=== PATIENT | female | born 1935 | race Caucasian/White ===

== ENCOUNTER 2019-04-02 07:45 | Inpatient (IN) | payer MEDICARE, OTHER ==
--- NOTE | 2019-04-02 08:18 | EDM.PDOC ---
ED HPI GENERAL MEDICAL PROBLEM - General Chief Complaint: Respiratory Problem Stated Complaint: BODY PAIN, PNEUMONIA Time Seen by Provider: 04/02/19 08:18 - History of Present Illness INITIAL COMMENTS - FREE TEXT/NARRATIVE: 84-year-old female presents emergency room with pneumonia and polymyalgia rheumatica. Patient was restarted on prednisone 20 mg a day for her PMR. She completed a course of Zithromax and near complete course of Omnicef for her pneumonia. She states every time she thinks her cough is actually getting a little bit better no longer productive and it is less frequent. She is achy all over especially in her shoulders and hips and just doesn't feel well. The patient had a bout of pneumonia this last spring was treated in July and seemed to do pretty well after this until this last bout. It is sometimes difficult to get a precise history from this patient. Lower Back Pain Score (Numeric/FACES): 10 - Related Data Allergies Allergy/AdvReac Type Severity Reaction Status Date / Time No Known Allergies Allergy Verified 04/02/19 07:53 Home Meds: Home Meds Calcium Carbonate [Calcium] 500 mg PO DAILY 05/18/16 [History] Multivit-Min/Iron/Folic/Lutein [Centrum Silver Women Tablet] 1 tab PO DAILY [History] Simvastatin [Zocor] 40 mg PO BEDTIME 05/18/16 [History] Triamterene/Hydrochlorothiazid [Triamterene-HCTZ 37.5-25 MG] 1 each PO DAILY [History] Losartan [Cozaar] 25 mg PO DAILY 04/02/19 [History] predniSONE [Prednisone] 20 mg PO DAILY 04/02/19 [History] Past Medical History HEENT History: Reports: Cataract, Hard of Hearing, Impaired Vision Cardiovascular History: Reports: High Cholesterol, Hypertension Gastrointestinal History: Reports: Chronic Constipation, Hemorrhoids Musculoskeletal History: Reports: Arthritis, Back Pain, Chronic Oncologic (Cancer) History: Reports: Colon - Infectious Disease History Other Infectious Disease History: Got Flu shot in January. - Past Surgical History HEENT Surgical History: Reports: Cataract Surgery Female Surgical History: Reports: Hysterectomy Social & Family History - Family History Cardiac: Reports: [place] Other Cardiac Family History: mother, father - Tobacco Use Smoking Status *Q: Never Smoker - Caffeine Use Caffeine Use: Reports: Coffee - Recreational Drug Use Recreational Drug Use: No ED ROS GENERAL - Review of Systems Review Of Systems: See Below Constitutional: Reports: Chills. Denies: Fever HEENT: Reports: No Symptoms Respiratory: Reports: Cough (This apparently is improving no longer productive) . Denies: Shortness of Breath, Sputum Cardiovascular: Denies: Chest Pain GI/Abdominal: Reports: Anorexia, Other (She felt like she was to have diarrhea but never really did). Denies: Nausea, Vomiting : Reports: No Symptoms Musculoskeletal: Reports: No Symptoms Skin: Reports: No Symptoms Neurological: Reports: No Symptoms Psychiatric: Reports: Anxiety ED EXAM, GENERAL - Physical Exam Exam: See Below Exam Limited By: Other (It is difficult to get a concise history from her) General Appearance: Alert, No Apparent Distress Head: Atraumatic, Normocephalic Neck: Normal Inspection, Supple, Non-Tender, Full Range of Motion Respiratory/Chest: No Respiratory Distress, Lungs Clear, Normal Breath Sounds Cardiovascular: Regular Rate, Rhythm, No Edema, No Murmur GI/Abdominal: Normal Bowel Sounds, Soft, Tender (Only with palpation and believed to palpation), Other (Have some mild distention her). No: No Distention, Guarding, Rigid, Rebound Back Exam: Normal Inspection. No: CVA Tenderness (L), CVA Tenderness (R) Extremities: Normal Inspection, No Pedal Edema Neurological: Alert, Oriented Psychiatric: Anxious Skin Exam: Warm, Dry, Intact Course - Vital Signs Last Recorded V/S: Last Vital Signs Temp 36.8 C 04/02/19 07:55 Pulse 83 04/02/19 07:55 Resp 20 04/02/19 07:55 BP 131/67 04/02/19 07:55 Pulse Ox 95 04/02/19 07:55 - Orders/Labs/Meds Orders: Active Orders 24 hr Category Date Time Status Abdomen 2V AP Flat Upright [CR] Stat Exams 04/02/19 13:19 Taken Chest 2V [CR] Stat Exams 04/02/19 08:53 Taken Lactated Ringers [Ringers, Lactated] 1,000 ml Med 04/02/19 13:15 Active IV ASDIRECTED Isolation [COMM] Routine Oth 04/02/19 15:28 Ordered Medication Orders Acetaminophen (Tylenol) 650 mg PO Q4H PRN PRN Reason: Pain (Mild 1-3)/fever Lactated Ringer's (Ringers, Lactated) 1,000 mls @ 125 mls/hr IV ASDIRECTED RENATO Last Admin: 04/02/19 14:00 Dose: 125 mls/hr Ondansetron HCl (Zofran Odt) 4 mg PO Q6H PRN PRN Reason: nausea, able to take PO Ondansetron HCl (Zofran) 4 mg IVPUSH Q8H RENATO Simethicone (Simethicone) 80 mg PO Q4H [facility] Labs: Laboratory Tests 04/02/19 04/02/19 04/02/19 Range/Units 09:15 09:15 09:15 WBC 22.01 H (3.98-10.04) K/mm3 RBC 4.63 (3.98-5.22) M/mm3 Hgb 12.8 D (11.2-15.7) gm/dl Hct 38.2 (34.1-44.9) % MCV 82.5 (79.4-94.8) fl MCH 27.6 (25.6-32.2) pg MCHC 33.5 (32.2-35.5) g/dl RDW Std Deviation 42.9 (36.4-46.3) fL Plt Count 506 H D (182-369) K/mm3 MPV 8.3 L (9.4-12.3) fl Neutrophils % (Manual) 86 H (40-60) % Band Neutrophils % 0 (0-10) % Lymphocytes % (Manual) 10 L (20-40) % Atypical Lymphs % 0 % Monocytes % (Manual) 4 (2-10) % Eosinophils % (Manual) 0 L (0.7-5.8) % Basophils % (Manual) 0 L (0.1-1.2) Platelet Estimate Adequate RBC Morph Comment Normal ESR 60 H (0-20) mm/hr Sodium 132 L (136-145) mEq/L Potassium 3.5 (3.5-5.1) mEq/L Chloride 95 L (98-107) mEq/L Carbon Dioxide 25 (21-32) mEq/L Anion Gap 15.5 H (5-15) BUN 34 H (7-18) mg/dL Creatinine 2.3 H D (0.55-1.02) mg/dL Est Cr Clr Drug Dosing 15.33 mL/min Estimated GFR (MDRD) 20 (>60) mL/min BUN/Creatinine Ratio 14.8 (14-18) Glucose 157 H (83-115) mg/dL Calcium 10.1 (8.5-10.1) mg/dL Total Bilirubin 0.5 (0.2-1.0) mg/dL AST 22 (15-37) U/L ALT 34 (14-59) U/L Alkaline Phosphatase 46 (46-116) U/L Total Protein 6.6 (6.4-8.2) g/dl Albumin 2.5 L (3.4-5.0) g/dl Globulin 4.1 gm/dL Albumin/Globulin Ratio 0.6 L (1-2) Urine Color (Yellow) Urine Appearance (Clear) Urine pH (5.0-8.0) Ur Specific [place] (1.005-1.030) Urine Protein (Negative) Urine Glucose (UA) (Negative) Urine Ketones (Negative) Urine Occult Blood (Negative) Urine Nitrite (Negative) Urine Bilirubin (Negative) Urine Urobilinogen (0.2-1.0) Ur Leukocyte Esterase (Negative) Urine RBC (0-5) /hpf Urine WBC (0-5) /hpf Ur Squamous Epith Cells (0-5) /hpf Amorphous Sediment (NOT SEEN) /hpf Urine Bacteria (FEW) /hpf Urine Mucus (FEW) /hpf Ur Random Creatinine (30.0-125.0) mg/dL Ur Random Sodium (40-220) mEq/L 04/02/19 04/02/19 Range/Units 11:34 11:34 WBC (3.98-10.04) K/mm3 RBC (3.98-5.22) M/mm3 Hgb (11.2-15.7) gm/dl Hct (34.1-44.9) % MCV (79.4-94.8) fl MCH (25.6-32.2) pg MCHC (32.2-35.5) g/dl RDW Std Deviation (36.4-46.3) fL Plt Count (182-369) K/mm3 MPV (9.4-12.3) fl Neutrophils % (Manual) (40-60) % Band Neutrophils % (0-10) % Lymphocytes % (Manual) (20-40) % Atypical Lymphs % % Monocytes % (Manual) (2-10) % Eosinophils % (Manual) (0.7-5.8) % Basophils % (Manual) (0.1-1.2) Platelet Estimate RBC Morph Comment ESR (0-20) mm/hr Sodium (136-145) mEq/L Potassium (3.5-5.1) mEq/L Chloride (98-107) mEq/L Carbon Dioxide (21-32) mEq/L Anion Gap (5-15) BUN (7-18) mg/dL Creatinine (0.55-1.02) mg/dL Est Cr Clr Drug Dosing mL/min Estimated GFR (MDRD) (>60) mL/min BUN/Creatinine Ratio (14-18) Glucose (83-115) mg/dL Calcium (8.5-10.1) mg/dL Total Bilirubin (0.2-1.0) mg/dL AST (15-37) U/L ALT (14-59) U/L Alkaline Phosphatase (46-116) U/L Total Protein (6.4-8.2) g/dl Albumin (3.4-5.0) g/dl Globulin gm/dL Albumin/Globulin Ratio (1-2) Urine Color Yellow (Yellow) Urine Appearance Clear (Clear) Urine pH 7.0 (5.0-8.0) Ur Specific [place] 1.020 (1.005-1.030) Urine Protein 1+ H (Negative) Urine Glucose (UA) Negative (Negative) Urine Ketones Negative (Negative) Urine Occult Blood 3+ H (Negative) Urine Nitrite Negative (Negative) Urine Bilirubin Negative (Negative) Urine Urobilinogen 0.2 (0.2-1.0) Ur Leukocyte Esterase Negative (Negative) Urine RBC 50-75 H (0-5) /hpf Urine WBC 0-5 (0-5) /hpf Ur Squamous Epith Cells 0-5 (0-5) /hpf Amorphous Sediment Few H (NOT SEEN) /hpf Urine Bacteria Few (FEW) /hpf Urine Mucus Not seen (FEW) /hpf Ur Random Creatinine 52.0 (30.0-125.0) mg/dL Ur Random Sodium 74 (40-220) mEq/L Meds: Medications Generic Name Dose Route Start Last Admin Trade Name Freq PRN Reason Stop Dose Admin Acetaminophen 650 mg 04/02/19 15:33 Tylenol PO Q4H PRN Pain (Mild 1-3)/fever Lactated Ringer's 1,000 mls @ 125 mls/hr 04/02/19 13:15 04/02/19 14:00 Ringers, Lactated IV 125 mls/hr ASDIRECTED RENATO Administration Ondansetron HCl 4 mg 04/02/19 15:33 Zofran Odt PO Q6H PRN nausea, able to take PO Ondansetron HCl 4 mg 04/02/19 15:45 Zofran IVPUSH Q8H RENATO Simethicone 80 mg 04/02/19 15:45 Simethicone PO Q4H RENATO Discontinued Medications Generic Name Dose Route Start Last Admin Trade Name Freq PRN Reason Stop Dose Admin Ondansetron HCl 4 mg 04/02/19 15:28 04/02/19 15:31 Zofran IVPUSH 04/02/19 15:29 4 mg ONETIME ONE Administration Sucralfate 1 gm 04/02/19 08:52 04/02/19 09:03 Carafate PO 04/02/19 08:53 1 gm ONETIME ONE Administration - Re-Assessments/Exams Free Text/Narrative Re-Assessment/Exam: 04/02/19 13:04 Patient's chest x-ray is consistent with a left lower lobe pneumonia and a right lower segment middle lobe pneumonia. Her white count is 20,000 could be due to the steroids that she was just started on. I was able to discuss the situation with Dr. De La Garza, her regular physician, and her BUN/creatinine are much higher than they were a couple of days ago. I talked this over with the patient and apparently she's now complaining of some bloating in her abdomen and doesn't feel like she can eat or drink. We'll start some fluids. She did have a full treatment of Zithromax and Omnicef she stopped the Omnicef on her last day but could well have persistent pneumonia. Apparently on prior x-rays the pneumonia did not show up. Will await her abdominal x-rays before discussing with the hospitalist and will start IV fluids 04/02/19 14:14 I discussed the patient's case with Dr. Pollo joy while back she will evaluate the patient. Departure - Departure Time of Disposition: 13:05 Disposition: Admitted As Inpatient 67 Clinical Impression: Renal insufficiency, Dehydration - Discharge Information Sepsis Event Note - Evaluation Sepsis Screening Result: No Definite Risk - Focused Exam Vital Signs: Vital Signs Temp Pulse Resp BP Pulse Ox 04/02/19 07:55 36.8 C 83 20 131/67 95 Date Exam was Performed: 04/02/19 Time Exam was Performed: 15:48 - My Orders Last 24 Hours: My Active Orders 04/02/19 08:53 Chest 2V [CR] Stat 04/02/19 13:15 Lactated Ringers [Ringers, Lactated] 1,000 ml IV ASDIRECTED 04/02/19 13:19 Abdomen 2V AP Flat Upright [CR] Stat - Assessment/Plan Last 24 Hours: My Active Orders 04/02/19 08:53 Chest 2V [CR] Stat 04/02/19 13:15 Lactated Ringers [Ringers, Lactated] 1,000 ml IV ASDIRECTED 04/02/19 13:19 Abdomen 2V AP Flat Upright [CR] Stat
[2019-04-02] MEDS ORDERED: Sucralfate Suspension 1 GM/10 ML Cup PO ONE (08:52)
[2019-04-02] MEDS ORDERED: Lactated Ringers 1,000 ML IV SCH (13:15)
[2019-04-02] MEDS ORDERED: Ondansetron 4 MG/2 ML SDV IVPUSH ONE (15:28)
[2019-04-02] MEDS ORDERED: Ondansetron 4 MG Tab.DIS PO PRN (15:33)
--- NOTE | 2019-04-02 15:49 | PCM.HP.2 ---
H&P History of Present Illness - General Date of Service: 04/02/19 Admit Problem/Dx: Admission Diagnosis/Problem Admission Diagnosis/Problem Diarrhea in adult patient - History of Present Illness Initial Comments - Free Text/Narative: This is a 84 year old female with past medical history of hypertension who comes to the ED complaining of progressive weakness, nausea and diarrhea. As per patient on 03/25 she was diagnosed with PNA as an outpatient and started on Azithromycin and Cefdinir, she took the 5 days of azithromycin and discontinued the Cefdinir on 03/31 because she was having worsening diarrhea with bowel movements with every meal. She has continued to have worsening diarrhea after meals, "everything goes right through me" as well as nausea with dry heaving and inability to tolerate PO. She also endorses early satiety, weakness, bloating, decreased urine output Once she noticed symptoms were not improving she decided to come to the ED for further evaluation. Lower Back Pain Score (Numeric/FACES): 10 - Related Data Allergies/Adverse Reactions: Allergies Allergy/AdvReac Type Severity Reaction Status Date / Time No Known Allergies Allergy Verified 04/02/19 16:21 Home Medications: Home Meds Calcium Carbonate [Calcium] 500 mg PO DAILY 05/18/16 [History] Multivit-Min/Iron/Folic/Lutein [Centrum Silver Women Tablet] 1 tab PO DAILY [History] Simvastatin [Zocor] 40 mg PO BEDTIME 05/18/16 [History] Triamterene/Hydrochlorothiazid [Triamterene-HCTZ 37.5-25 MG] 1 each PO DAILY [History] Cefdinir 300 mg PO BID 04/02/19 [History] Losartan [Cozaar] 25 mg PO DAILY 04/02/19 [History] predniSONE [Prednisone] 20 mg PO DAILY 04/02/19 [History] Past Medical History HEENT History: Reports: Cataract, Hard of Hearing, Impaired Vision Cardiovascular History: Reports: High Cholesterol, Hypertension Gastrointestinal History: Reports: Chronic Constipation, Hemorrhoids Musculoskeletal History: Reports: Arthritis, Back Pain, Chronic Oncologic (Cancer) History: Reports: Colon - Infectious Disease History Other Infectious Disease History: Got Flu shot in January. - Past Surgical History HEENT Surgical History: Reports: Cataract Surgery Female Surgical History: Reports: Hysterectomy Social & Family History - Family History Cardiac: Reports: [place] Other Cardiac Family History: mother, father - Tobacco Use Smoking Status *Q: Never Smoker - Caffeine Use Caffeine Use: Reports: Coffee - Recreational Drug Use Recreational Drug Use: No H&P Review of Systems - Review of Systems: Review Of Systems: See Below General: Reports: Malaise, Weakness, Fatigue, Decreased Appetite. Denies: Fever , Chills, Diaphoresis, Weight Loss, Weight Gain HEENT: Reports: Hearing Changes. Denies: Dysphasia, Ear Pain, Eye Pain, Glasses , Headaches, Rhinitis, Post Nasal Drip, Sinus Congestion, Sore Throat, Vertigo, Visual Changes Pulmonary: Reports: Shortness of Breath, Cough, Sputum Cardiovascular: Denies: Chest Pain, Palpitations, Dyspnea on Exertion, Orthopnea , PND, Edema, Lightheadedness, Syncope, Claudication Gastrointestinal: Reports: Abdominal Pain, Anorexia, Diarrhea, Decreased Appetite, Distension, Nausea, Stool Incontinence. Denies: Black Stool, Bloody Stool, Constipation, Difficulty Swallowing, Flatus, Hematemesis, Hematochezia, Melena, Mucous in Stool, Vomiting Genitourinary: Denies: Dysuria, Frequency, Burning, Pain, Urgency, Incontinence , Hematuria, Retention Musculoskeletal: Reports: Joint Pain, Muscle Pain. Denies: Joint Swelling, Muscle Stiffness Skin: Denies: Cyanosis, Jaundice, Mottled, Pallor, Diaphoresis, Dryness, Bruising, Rash, Erythema Psychiatric: Denies: Confusion, Depression, Mood Lability, Anxiety Neurological: Reports: Dizziness. Denies: Confusion, Headache, Numbness, Paresthesia, Pre-Existing Deficit, Seizure, Syncope, Tingling Exam - Exam Exam: See Below - Vital Signs Vital Signs: Last Vital Signs Temp 98.3 F 04/02/19 07:55 Pulse 83 04/02/19 07:55 Resp 20 04/02/19 07:55 BP 131/67 04/02/19 07:55 Pulse Ox 95 04/02/19 07:55 Weight: 78.471 kg - Exam Quality Assessment: No: Supplemental Oxygen, Central Line/PICC, Urinary Catheter , DVT Prophylaxis, Skin Breakdown General: Alert, Oriented, Cooperative, Mild Distress HEENT: Conjunctiva Clear, EACs Clear, Nares Patent, Normal Nasal Septum, Pupils Equal, Pupils Reactive. No: Mucosa Moist & [place] Neck: Supple, Trachea Midline, +2 Carotid Pulse wo Bruit, JVD Lungs: Clear to Auscultation, Normal Respiratory Effort. No: Crackles, Rales, Rhonchi, Wheezing Cardiovascular: Regular Rate, Regular Rhythm, Systolic Murmur. No: Diastolic Murmur, Rubs, Gallop/S3, Gallop/S4 GI/Abdominal Exam: Normal Bowel Sounds, Distended. No: Guarding, Rigid, Rebound - Patient Data Result Diagrams: 04/02/19 09:15 04/02/19 09:15 Sepsis Event Note - Evaluation Sepsis Screening Result: No Definite Risk - Focused Exam Vital Signs: Vital Signs Temp Pulse Resp BP Pulse Ox 04/02/19 07:55 98.3 F 83 20 131/67 95 Date Exam was Performed: 04/02/19 Time Exam was Performed: 18:25 - Problem List (1) Volume depletion SNOMED Code(s): 68920502 ICD Code: E86.9 - VOLUME DEPLETION, UNSPECIFIED Status: Acute Current Visit: Yes (2) Diarrhea SNOMED Code(s): 38490627 ICD Code: R19.7 - DIARRHEA, UNSPECIFIED Status: Acute Current Visit: Yes (3) Malaise and fatigue SNOMED Code(s): 845115732 ICD Code: R53.81 - OTHER MALAISE; R53.83 - OTHER FATIGUE Status: Acute Current Visit: Yes (4) Generalized body aches SNOMED Code(s): 21681606 ICD Code: R52 - PAIN, UNSPECIFIED Status: Acute Current Visit: Yes (5) Hypertension SNOMED Code(s): 51152799 ICD Code: I10 - ESSENTIAL (PRIMARY) HYPERTENSION Status: Acute Current Visit: Yes (6) Meniere's disease SNOMED Code(s): 82504239 ICD Code: H81.09 - MENIERE'S DISEASE, UNSPECIFIED EAR Status: Acute Current Visit: Yes (7) Dyslipidemia SNOMED Code(s): 515887760 ICD Code: E78.5 - HYPERLIPIDEMIA, UNSPECIFIED Status: Acute Current Visit : Yes (8) Deafness in left ear SNOMED Code(s): 187304446 ICD Code: H91.92 - UNSPECIFIED HEARING LOSS, LEFT EAR Status: Acute Current Visit: Yes (9) Nausea SNOMED Code(s): 856857296 ICD Code: R11.0 - NAUSEA Status: Acute Current Visit: Yes (10) Abdominal bloating SNOMED Code(s): 547751805 ICD Code: R14.0 - ABDOMINAL DISTENSION (GASEOUS) Status: Acute Current Visit: Yes (11) Polymyalgia rheumatica SNOMED Code(s): 43775427 ICD Code: M35.3 - POLYMYALGIA RHEUMATICA Status: Acute Current Visit: Yes (12) Leukocytosis SNOMED Code(s): 296930598, 670073733 ICD Code: D72.829 - ELEVATED WHITE BLOOD CELL COUNT, UNSPECIFIED Status: Acute Current Visit: Yes (13) Thrombocytosis SNOMED Code(s): 6810911 ICD Code: D47.3 - ESSENTIAL (HEMORRHAGIC) THROMBOCYTHEMIA Status: Acute Current Visit: Yes (14) Hyponatremia SNOMED Code(s): 88197840 ICD Code: E87.1 - HYPO-OSMOLALITY AND HYPONATREMIA Status: Acute Current Visit: Yes (15) Hypochloremia SNOMED Code(s): 48457396 ICD Code: E87.8 - OTH DISORDERS OF ELECTROLYTE AND FLUID BALANCE, NEC Status: Acute Current Visit: Yes (16) Acute kidney failure SNOMED Code(s): 16145653 ICD Code: N17.9 - ACUTE KIDNEY FAILURE, UNSPECIFIED Status: Acute Current Visit: Yes (17) Hematuria SNOMED Code(s): 41266628 ICD Code: R31.9 - HEMATURIA, UNSPECIFIED Status: Acute Current Visit: Yes (18) Hypoalbuminemia SNOMED Code(s): 286074675 ICD Code: E88.09 - OTH DISORDERS OF PLASMA-PROTEIN METABOLISM, NEC Status: Acute Current Visit: Yes (19) Chronic steroid use SNOMED Code(s): 939091341 ICD Code: LYV9255 - Status: Acute Current Visit: Yes (20) H/O: pneumonia SNOMED Code(s): 249721295 ICD Code: Z87.01 - PERSONAL HISTORY OF PNEUMONIA (RECURRENT) Status: Acute Current Visit: Yes (21) Physical deconditioning SNOMED Code(s): 17712029480470 ICD Code: R53.81 - OTHER MALAISE Status: Acute Current Visit: Yes Problem List Initiated/Reviewed/Updated: Yes Assessment/Plan Comment:: Volume depletion 2/2 GI loss and poor oral intake Diarrhea/Nausea/Abdominal bloating Malaise/Fatigue/Generalized body aches Leukocytosis/Thrombocytosis H/O: pneumonia 1 week ago Diagnosed with PNA 03/25--> treated with Azithromycin and Cefdinir, completed 5 and 6 days Cefdinir discontinued early due to worsening diarrhea, recent incontinence Worsening diarrhea with inability to tolerate PO KUB with nonspecific gas pattern PLAN - C. diff stool test - IVF repletion with NS due to hyponatremia - No ATB for now - Scheduled Zofran and Simethicone - Contact precautions Acute vs acute on chronic kidney failure Hyponatremia/Hypochloremia Likely prerenal but could be renal due to hematuria PLAN - Volume repletion with NS - Urine electrolytes Hematuria Specimen described as yellow PLAN - Retroperitoneal US - Microalbumin in urine - Random protein in urine - Request records Polymyalgia rheumatica with chronic steroid use Started on steroids July on this year Tapered down to discontinuation late February Patient endorses feeling worse since discontinuation for which PCP restarted prednisone 20mg QD PLAN - 8AM cortisol for evaluation of axis suppression - Hold prednisone for now Hypertension, controlled BP on admission 131/67 bu patient in pain Clinically volume depleted Home management with Losartan 25mg PO QD PLAN - Hold home medications - Continue volume repletion with IVF as per problem 1 - PRN Hydralazine for BP > 180/100 Meniere's disease Chronic problem No acute symptoms Home management with triamterene and hydrochlorothiazide PLAN - Continue home medication Dyslipidemia No acute issues Out of window from statin benefit Unknown ASCVD risk PLAN - Repeat lipid panel - Recommend PCP to re-evaluate medication - Simvastatin on hold Hypoalbuminemia Acute on chronic deconditioning Decreased exercise tolerance PLAN - Prealbumin level - Dietary consult PROPHYLAXIS DVT- pharmacologic not indicated, S[facility]-not indicated CODE STATUS: FULL CODE DISPOSITION: Admitted under observation to medical floor for volume repletion and symptom control.
[2019-04-02] MEDS ORDERED: Ondansetron 4 MG/2 ML SDV IVPUSH SCH (16:00)
[2019-04-02] MEDS ORDERED: hydrALAZINE 20 MG/ML SDV IVPUSH PRN (17:52)
[2019-04-02] MEDS: Simethicone 80 MG Tab.Chew PO SCH ×2 (18:17→21:03)
[2019-04-02 18:33] LABS: HEMOGLOBIN A1C 6.7 % (4.50-6.20)
[2019-04-02] MEDS: Sodium Chloride 0.9% 1,000 ML IV SCH (21:02)
[2019-04-02] MEDS: Acetaminophen 325 MG Tab PO PRN (21:03)
[2019-04-02] MEDS: TRIAMTERENE PO SCH (21:06)
[2019-04-02] MEDS: HYDROCHLOROTHIAZIDE PO SCH (21:06)
[2019-04-03] MEDS: Simethicone 80 MG Tab.Chew PO SCH ×6 (00:12→20:16)
[2019-04-03] MEDS: Ondansetron 4 MG/2 ML SDV IVPUSH SCH ×2 (00:12→06:42)
[2019-04-03] MEDS: Acetaminophen 325 MG Tab PO PRN ×3 (02:56→21:11)
[2019-04-03] MEDS: Sodium Chloride 0.9% 1,000 ML IV SCH ×2 (05:13→15:41)
[2019-04-03] MEDS: TRIAMTERENE PO SCH (09:05)
[2019-04-03] MEDS: HYDROCHLOROTHIAZIDE PO SCH (09:05)
[2019-04-03] MEDS ORDERED: Ondansetron 4 MG/2 ML SDV IVPUSH PRN (10:14)
[2019-04-03] MEDS ORDERED: Magnesium Sulfate/Water 4 GM in Premix Bag 1 BAG IV ONE (10:16)
--- NOTE | 2019-04-03 10:20 | CR ---
Chest: PA and lateral views of the chest are obtained. Comparison: Previous chest x-ray of 05/18/16. Increased perihilar markings are seen which is felt compatible bronchitis. Pneumonia is felt to be present within the left mid lung. Heart size at the upper limits of normal. Tortuous thoracic aorta is seen. Bony structures are osteopenic. Scattered disc space narrowing throughout the spine is noted with mild scoliosis. Impression: 1. Findings felt compatible with bronchitis as well as left mid lung pneumonia. 2. Other findings as noted above which are nonacute. Diagnostic code #3 This report was dictated in [place] Standard Time
--- NOTE | 2019-04-03 10:20 | CR ---
Abdomen: Supine and upright views of the abdomen were obtained. Comparison: No prior abdominal x-ray. Prior abdominal and pelvic CT exam of 03/06/11. Scattered gas within small bowel and colon is seen. No bowel dilatation is seen. Degenerative change and osteopenia is seen within the lumbar spine. Mild joint space narrowing is noted within both hips. No free air is seen. Impression: 1. Findings as noted above. 2. Nothing acute is appreciated. Diagnostic code #2 This report was dictated in [place] Standard Time
--- NOTE | 2019-04-03 10:28 | US ---
Renal ultrasound: Multiple real-time images of the kidneys were obtained. Comparison: No prior renal ultrasound exam. Kidneys show no hydronephrosis. Inferior cyst is noted within the right kidney measuring 1.4 cm. No other cyst or solid abnormality is appreciated within the kidneys. Resistivity indices are felt to be within normal limits. Prevoid bladder volume is 166 mL with bladder emptying completely on post void exam. Right kidney length is 10.6 cm and left kidney length is 11.1 cm. Impression: 1. Findings as noted above. 2. Nothing appreciated to indicate as to the etiology for the patient's hematuria. Note: Please correlate if patient's symptoms warrant further evaluation with CT exam as a hematuria protocol is needed Diagnostic code #2 This report was dictated in [place] Standard Time
[2019-04-03] MEDS: Potassium Chloride 10 MEQ in Premix Bag 1 BAG IV SCH ×3 (10:51→13:38)
--- NOTE | 2019-04-03 16:35 | PCM.PN ---
- General Info Date of Service: 04/03/19 Subjective Update: Feeling better, still weak Slept ok Tolerating diet No BM since admission - Patient Data Vitals - Most Recent: Last Vital Signs Temp 97.5 F 04/03/19 09:00 Pulse 82 04/03/19 12:09 Resp 20 04/03/19 12:09 BP 144/87 H 04/03/19 12:09 Pulse Ox 95 04/03/19 12:09 Weight - Most Recent: 77.61 kg - Exam Quality Assessment: DVT Prophylaxis. No: Supplemental Oxygen, Central Line/PICC , Urine Catheter General: Alert, Oriented, Cooperative, No Acute Distress HEENT: Pupils Equal, Pupils Reactive, EOMI, Mucous Membr. Moist/[place] Neck: Supple, Trachea Midline, No JVD, No Thyromegaly, +2 Carotid Pulse wo Bruit Lungs: Clear to Auscultation, Normal Respiratory Effort Cardiovascular: Regular Rate, Regular Rhythm. No: Murmurs, Gallops, Rubs GI/Abdominal Exam: Normal Bowel Sounds, Soft, Non-Tender, No Organomegaly Back Exam: Normal Inspection Extremities: Normal Inspection, No Pedal Edema, Normal Capillary Refill Neurological: No New Focal Deficit Psy/Mental Status: Alert, Normal Affect, Normal Mood Sepsis Event Note - Evaluation Sepsis Screening Result: No Definite Risk - Focused Exam Vital Signs: Vital Signs Temp Pulse Resp BP Pulse Ox 04/03/19 12:09 82 20 144/87 H 95 04/03/19 09:00 97.5 F 73 20 127/81 95 Date Exam was Performed: 04/03/19 Time Exam was Performed: 16:30 - Problem List & Annotations (1) Volume depletion SNOMED Code(s): 47480112 Code(s): E86.9 - VOLUME DEPLETION, UNSPECIFIED Status: Acute Current Visit: Yes (2) Diarrhea SNOMED Code(s): 98859141 Code(s): R19.7 - DIARRHEA, UNSPECIFIED Status: Acute Current Visit: Yes (3) Malaise and fatigue SNOMED Code(s): 093865582 Code(s): R53.81 - OTHER MALAISE; R53.83 - OTHER FATIGUE Status: Acute Current Visit: Yes (4) Generalized body aches SNOMED Code(s): 69250461 Code(s): R52 - PAIN, UNSPECIFIED Status: Acute Current Visit: Yes (5) Hypertension SNOMED Code(s): 09949260 Code(s): I10 - ESSENTIAL (PRIMARY) HYPERTENSION Status: Acute Current Visit: Yes (6) Meniere's disease SNOMED Code(s): 63731171 Code(s): H81.09 - MENIERE'S DISEASE, UNSPECIFIED EAR Status: Acute Current Visit: Yes (7) Dyslipidemia SNOMED Code(s): 011439776 Code(s): E78.5 - HYPERLIPIDEMIA, UNSPECIFIED Status: Acute Current Visit : Yes (8) Deafness in left ear SNOMED Code(s): 407865223 Code(s): H91.92 - UNSPECIFIED HEARING LOSS, LEFT EAR Status: Acute Current Visit: Yes (9) Nausea SNOMED Code(s): 110967307 Code(s): R11.0 - NAUSEA Status: Acute Current Visit: Yes (10) Abdominal bloating SNOMED Code(s): 264177029 Code(s): R14.0 - ABDOMINAL DISTENSION (GASEOUS) Status: Acute Current Visit: Yes (11) Polymyalgia rheumatica SNOMED Code(s): 91759811 Code(s): M35.3 - POLYMYALGIA RHEUMATICA Status: Acute Current Visit: Yes (12) Leukocytosis SNOMED Code(s): 876539593, 844392548 Code(s): D72.829 - ELEVATED WHITE BLOOD CELL COUNT, UNSPECIFIED Status: Acute Current Visit: Yes (13) Thrombocytosis SNOMED Code(s): 9520406 Code(s): D47.3 - ESSENTIAL (HEMORRHAGIC) THROMBOCYTHEMIA Status: Acute Current Visit: Yes (14) Hyponatremia SNOMED Code(s): 49539634 Code(s): E87.1 - HYPO-OSMOLALITY AND HYPONATREMIA Status: Acute Current Visit: Yes (15) Hypochloremia SNOMED Code(s): 27032914 Code(s): E87.8 - OTH DISORDERS OF ELECTROLYTE AND FLUID BALANCE, NEC Status : Acute Current Visit: Yes (16) Acute kidney failure SNOMED Code(s): 05276781 Code(s): N17.9 - ACUTE KIDNEY FAILURE, UNSPECIFIED Status: Acute Current Visit: Yes (17) Hematuria SNOMED Code(s): 94423166 Code(s): R31.9 - HEMATURIA, UNSPECIFIED Status: Acute Current Visit: Yes (18) Hypoalbuminemia SNOMED Code(s): 492940257 Code(s): E88.09 - OTH DISORDERS OF PLASMA-PROTEIN METABOLISM, NEC Status: Acute Current Visit: Yes (19) Chronic steroid use SNOMED Code(s): 257530286 Code(s): AEV7732 - Status: Acute Current Visit: Yes (20) H/O: pneumonia SNOMED Code(s): 821473000 Code(s): Z87.01 - PERSONAL HISTORY OF PNEUMONIA (RECURRENT) Status: Acute Current Visit: Yes (21) Physical deconditioning SNOMED Code(s): 93910443890059 Code(s): R53.81 - OTHER MALAISE Status: Acute Current Visit: Yes (22) Hypomagnesemia SNOMED Code(s): 753813368 Code(s): E83.42 - HYPOMAGNESEMIA Status: Acute Current Visit: Yes (23) Hypokalemia SNOMED Code(s): 89780126 Code(s): E87.6 - HYPOKALEMIA Status: Acute Current Visit: Yes - Problem List Review Problem List Initiated/Reviewed/Updated: Yes - Plan Plan:: Volume depletion 2/2 GI loss and poor oral intake Diarrhea/Nausea/Abdominal bloating Malaise/Fatigue/Generalized body aches Leukocytosis/Thrombocytosis H/O: pneumonia 1 week ago Diagnosed with PNA 03/25--> treated with Azithromycin and Cefdinir, completed 5 and 6 days Cefdinir discontinued early due to worsening diarrhea, recent incontinence Worsening diarrhea with inability to tolerate PO KUB with nonspecific gas pattern C. diff clinic negative PLAN - IVF repletion with NS due to hyponatremia - No ATB for now - Scheduled Simethicone - PRN Zofran Acute vs acute on chronic kidney failure, worsening Hyponatremia/Hypochloremia/Hypomagnesemia/Hypokalemia Likely prerenal but could be renal due to hematuria FeNa >1 PLAN - Volume repletion with NS - Urine electrolytes Hematuria Specimen described as yellow Pending US interpretation PLAN - Microalbumin in urine - Random protein in urine - Request records Polymyalgia rheumatica with chronic steroid use Started on steroids July on this year Tapered down to discontinuation late February Patient endorses feeling worse since discontinuation for which PCP restarted prednisone 20mg QD PLAN - 8AM cortisol for evaluation of axis suppression - Hold prednisone for now Hypertension, controlled BP on admission 131/67 bu patient in pain Clinically volume depleted Home management with Losartan 25mg PO QD PLAN - Hold home medications - Continue volume repletion with IVF as per problem 1 - PRN Hydralazine for BP > 180/100 Meniere's disease Chronic problem No acute symptoms Home management with triamterene and hydrochlorothiazide PLAN - Continue home medication Dyslipidemia No acute issues Out of window from statin benefit Unknown ASCVD risk PLAN - Repeat lipid panel - Recommend PCP to re-evaluate medication - Simvastatin on hold Hypoalbuminemia Acute on chronic deconditioning Decreased exercise tolerance PLAN - Prealbumin level - Dietary consult PROPHYLAXIS DVT- pharmacologic not indicated, [facility]-not indicated CODE STATUS: FULL CODE DISPOSITION: Admitted under observation to medical floor for volume repletion and symptom control.
[2019-04-04] MEDS: Simethicone 80 MG Tab.Chew PO SCH ×6 (00:42→21:21)
[2019-04-04] MEDS: Sodium Chloride 0.9% 1,000 ML IV SCH (04:45)
[2019-04-04] MEDS ORDERED: Furosemide 20 MG/2 ML VIAL IVPUSH STA (08:51)
--- NOTE | 2019-04-04 09:44 | CR ---
Chest: Two views of the chest were obtained. Comparison: Prior chest x-ray of 04/02/19. Increasing density is noted throughout both sides of the chest which has worsened from previous exam. Heart size at the upper limits of normal. Upper mediastinum is normal. Scattered degenerative change within the spine with mild scoliosis is noted. Impression: 1. Increasing parenchymal density throughout both lungs which has worsened from previous exam. Please correlate if patient has infectious symptoms to represent worsening bronchopneumonia. 2. Other findings which are believed to be incidental. Diagnostic code #3 This report was dictated in [place] Standard Time
[2019-04-04] MEDS ORDERED: amLODIPine 5 MG Tab PO ONE (10:45)
[2019-04-04] MEDS: HYDROCHLOROTHIAZIDE PO SCH (11:11)
[2019-04-04] MEDS: TRIAMTERENE PO SCH (11:11)
[2019-04-04] MEDS: Meclizine 12.5 MG Tab PO SCH (11:26)
--- NOTE | 2019-04-04 12:27 | PCM.PN ---
- General Info Date of Service: 04/04/19 Subjective Update: BM 04/01 Had some episodes of nausea Shortness of breath not improving - Patient Data Vitals - Most Recent: Last Vital Signs Temp 97.7 F 04/04/19 08:51 Pulse 84 04/04/19 08:51 Resp 24 H 04/04/19 08:51 BP 99/69 04/04/19 08:51 Pulse Ox 97 04/04/19 08:51 Weight - Most Recent: 80.014 kg - Exam Quality Assessment: Supplemental Oxygen General: Alert, Oriented, Cooperative, Mild Distress HEENT: Pupils Equal, Pupils Reactive, EOMI, Mucous Membr. Moist/[place] Neck: Supple, Trachea Midline, No Thyromegaly, JVD Lungs: Decreased Breath Sounds, Crackles, Rales, Wheezing. No: Rhonchi, Rub, Stridor Cardiovascular: Regular Rate, Regular Rhythm. No: Murmurs, Gallops, Rubs GI/Abdominal Exam: Normal Bowel Sounds, Soft, Non-Tender, No Organomegaly, No Distention Back Exam: Normal Inspection Extremities: Normal Inspection, Normal Range of Motion, Normal Capillary Refill , Pedal Edema Neurological: No New Focal Deficit Psy/Mental Status: Alert Sepsis Event Note - Evaluation Sepsis Screening Result: No Definite Risk - Focused Exam Vital Signs: Vital Signs Temp Pulse Resp BP Pulse Ox Pulse Ox 04/04/19 08:51 97.7 F 84 24 H 99/69 97 04/04/19 08:29 94 L 04/04/19 08:24 87 L 04/04/19 08:02 97.9 F 88 24 H 120/51 L 88 L 04/04/19 03:31 98.2 F 87 18 146/66 H 92 L 04/04/19 00:46 98.2 F 86 18 108/62 92 L Date Exam was Performed: 04/05/19 Time Exam was Performed: 12:07 - Problem List & Annotations (1) Acute kidney failure SNOMED Code(s): 37449599 Code(s): N17.9 - ACUTE KIDNEY FAILURE, UNSPECIFIED Status: Acute Current Visit: Yes (2) Volume overload SNOMED Code(s): 61135612 Code(s): E87.70 - FLUID OVERLOAD, UNSPECIFIED Status: Acute Current Visit : Yes (3) Hematuria SNOMED Code(s): 65157987 Code(s): R31.9 - HEMATURIA, UNSPECIFIED Status: Acute Current Visit: Yes (4) Hyponatremia SNOMED Code(s): 89977609 Code(s): E87.1 - HYPO-OSMOLALITY AND HYPONATREMIA Status: Acute Current Visit: Yes (5) Malaise and fatigue SNOMED Code(s): 656981025 Code(s): R53.81 - OTHER MALAISE; R53.83 - OTHER FATIGUE Status: Acute Current Visit: Yes (6) Generalized body aches SNOMED Code(s): 48214816 Code(s): R52 - PAIN, UNSPECIFIED Status: Acute Current Visit: Yes (7) Hypertension SNOMED Code(s): 65274237 Code(s): I10 - ESSENTIAL (PRIMARY) HYPERTENSION Status: Acute Current Visit: Yes (8) Meniere's disease SNOMED Code(s): 11258157 Code(s): H81.09 - MENIERE'S DISEASE, UNSPECIFIED EAR Status: Acute Current Visit: Yes (9) Dyslipidemia SNOMED Code(s): 267674138 Code(s): E78.5 - HYPERLIPIDEMIA, UNSPECIFIED Status: Acute Current Visit : Yes (10) Deafness in left ear SNOMED Code(s): 139998250 Code(s): H91.92 - UNSPECIFIED HEARING LOSS, LEFT EAR Status: Acute Current Visit: Yes (11) Nausea SNOMED Code(s): 123813797 Code(s): R11.0 - NAUSEA Status: Acute Current Visit: Yes (12) Abdominal bloating SNOMED Code(s): 709047150 Code(s): R14.0 - ABDOMINAL DISTENSION (GASEOUS) Status: Acute Current Visit: Yes (13) Polymyalgia rheumatica SNOMED Code(s): 04378946 Code(s): M35.3 - POLYMYALGIA RHEUMATICA Status: Acute Current Visit: Yes (14) Leukocytosis SNOMED Code(s): 069777597, 429589606 Code(s): D72.829 - ELEVATED WHITE BLOOD CELL COUNT, UNSPECIFIED Status: Acute Current Visit: Yes (15) Thrombocytosis SNOMED Code(s): 3075551 Code(s): D47.3 - ESSENTIAL (HEMORRHAGIC) THROMBOCYTHEMIA Status: Acute Current Visit: Yes (16) Hypochloremia SNOMED Code(s): 45979704 Code(s): E87.8 - OTH DISORDERS OF ELECTROLYTE AND FLUID BALANCE, NEC Status : Acute Current Visit: Yes (17) Hypoalbuminemia SNOMED Code(s): 937638432 Code(s): E88.09 - OTH DISORDERS OF PLASMA-PROTEIN METABOLISM, NEC Status: Acute Current Visit: Yes (18) Chronic steroid use SNOMED Code(s): 727921198 Code(s): WKS6974 - Status: Acute Current Visit: Yes (19) H/O: pneumonia SNOMED Code(s): 560173330 Code(s): Z87.01 - PERSONAL HISTORY OF PNEUMONIA (RECURRENT) Status: Acute Current Visit: Yes (20) Physical deconditioning SNOMED Code(s): 46579225688479 Code(s): R53.81 - OTHER MALAISE Status: Acute Current Visit: Yes (21) Hypomagnesemia SNOMED Code(s): 865822039 Code(s): E83.42 - HYPOMAGNESEMIA Status: Acute Current Visit: Yes (22) Hypokalemia SNOMED Code(s): 96740125 Code(s): E87.6 - HYPOKALEMIA Status: Acute Current Visit: Yes (23) Volume depletion SNOMED Code(s): 14417154 Code(s): E86.9 - VOLUME DEPLETION, UNSPECIFIED Status: Acute Current Visit: Yes (24) Diarrhea SNOMED Code(s): 88936448 Code(s): R19.7 - DIARRHEA, UNSPECIFIED Status: Acute Current Visit: Yes - Problem List Review Problem List Initiated/Reviewed/Updated: Yes - My Orders Last 24 Hours: My Active Orders 04/04/19 08:24 Oxygen Therapy [RC] ASDIRECTED 04/04/19 09:30 INEZ COMPREHENSIVE PLUS PROFILE [REF] Stat ANCA PANEL [REF] Stat ANTI-DNA (DS) AB QN [REF] Stat ANTIGLOMERULAR BM AB [REF] Stat COMPLEMENT C3 [REF] Stat COMPLEMENT C4 [REF] Stat COMPLEMENT, TOTAL (CH50) [REF] Stat HEPATITIS PANEL (4) [REF] Stat HIV I/II AG/AB 4TH GEN [REF] Stat HIV RNA, RT PCR (NONGRAPH) PL [REF] Stat IGG, SUBCLASSES(1-4) [REF] Stat 04/04/19 10:21 Patient Status [ADT] Routine 04/04/19 10:30 Meclizine [Antivert] 12.5 mg PO DAILY 04/04/19 11:07 Intake and Output Strict [RC] ASDIRECTED 04/04/19 16:00 BASIC METABOLIC PANEL,BMP [CHEM] Routine MAGNESIUM [CHEM] Routine PHOSPHORUS [CHEM] Routine - Plan Plan:: Acute kidney injury Acute volume overload Microscopic hematuria Hyponatremia/Hypochloremia Abdominal bloating Malaise/Fatigue/Generalized body aches Leukocytosis/Thrombocytosis Given IVF since admission Crackles and wheezing on physical exam with patchy infiltrates Consulted with nephrology in [place] who agreed with plan to work up for glomerulonephritis Retroperitoneal US negative for any obstruction Proteinuria 900mg/24 hrs Microalbuminuria PLAN - INEZ, ANCA PANEL, ANTI-DNA (DS) AB, ANTIGLOMERULAR BM, COMPLEMENT C3, C4, CH50 , HEPATITIS PANEL, HIV, Ig subclasses - Repeat labs in AM - Monitor respiratory status - NC as needed for O2 supplementation - If worsening will escalate care to [place] for dialysis. H/O: pneumonia 1 week ago Diagnosed with PNA 03/25--> treated with Azithromycin and Cefdinir, completed 5 and 6 days Cefdinir discontinued early due to worsening diarrhea, recent incontinence Worsening diarrhea with inability to tolerate PO KUB with nonspecific gas pattern C. diff clinic negative PLAN - No ATB for now - Scheduled Simethicone - PRN Zofran Polymyalgia rheumatica with chronic steroid use Started on steroids July on this year Tapered down to discontinuation late February Patient endorses feeling worse since discontinuation for which PCP restarted prednisone 20mg QD PLAN - 8AM cortisol for evaluation of axis suppression - Hold prednisone for now Hypertension, controlled BP trend 115-149/54-68 Volume depleted on admission, repletion resulted in volume overload Home management with Losartan 25mg PO QD Acute kidney injury precludes use of GIBSON and ARB PLAN - Hold home medications - PRN Hydralazine for BP > 180/100 Meniere's disease Chronic problem No acute symptoms Home management with triamterene and hydrochlorothiazide PLAN - Continue home medication Dyslipidemia No acute issues Out of window from statin benefit Unknown ASCVD risk PLAN - Repeat lipid panel - Recommend PCP to re-evaluate medication - Simvastatin on hold Hypoalbuminemia Acute on chronic deconditioning Decreased exercise tolerance PLAN - Prealbumin level - Dietary consult Volume depletion 2/2 GI loss and poor oral intake, resolved Diarrhea and nausea, resolved Hypomagnesemia/Hypokalemia, resolved PROPHYLAXIS DVT- pharmacologic not indicated, [facility]-not indicated CODE STATUS: FULL CODE DISPOSITION: Admitted under observation to medical floor for volume repletion and symptom control.
[2019-04-04] MEDS ORDERED: Albuterol/Ipratropium 3.0-0.5 MG/3 ML Neb Soln NEB ONE ×3 (18:15→18:47)
[2019-04-04] MEDS ORDERED: Furosemide 100 MG/10 ML SDV IVPUSH ONE (18:15)
[2019-04-04] MEDS ORDERED: Albuterol/Ipratropium 3.0-0.5 MG/3 ML Neb Soln ONE (18:41)
[2019-04-04] MEDS: Albuterol/Ipratropium 3.0-0.5 MG/3 ML Neb Soln NEB SCH (21:27)
[2019-04-05] MEDS: Simethicone 80 MG Tab.Chew PO SCH ×6 (00:17→20:10)
[2019-04-05] MEDS: Albuterol/Ipratropium 3.0-0.5 MG/3 ML Neb Soln NEB SCH ×6 (02:13→21:35)
[2019-04-05] MEDS: Meclizine 12.5 MG Tab PO SCH (08:14)
[2019-04-05] MEDS: Lactulose Soln 10 GM/15 ML 30 ML UD Cup PO SCH ×2 (11:37→17:12)
[2019-04-05] MEDS ORDERED: Piperacillin/Tazobactam 4.5 GM in Sodium Chloride 0.9% 100 ML IV ONE (11:58)
[2019-04-05] MEDS ORDERED: Levofloxacin/Dextrose 5%-Water 250 MG in Premix Bag 1 BAG IV SCH (12:00)
[2019-04-05] MEDS ORDERED: Piperacillin/Tazobactam 2.25 GM in Sodium Chloride 0.9% 100 ML IV SCH ×2 (12:00→18:15)
--- NOTE | 2019-04-05 12:06 | PCM.PN ---
- General Info Date of Service: 04/05/19 Subjective Update: Slept ok Tolerating diet No BM since 04/01 - Patient Data Vitals - Most Recent: Last Vital Signs Temp 97.3 F 04/05/19 11:36 Pulse 102 H 04/05/19 11:36 Resp 28 H 04/05/19 11:36 BP 114/68 04/05/19 11:36 Pulse Ox 94 L 04/05/19 11:36 Weight - Most Recent: 79.469 kg - Exam General: Alert, Oriented, Cooperative, Mild Distress HEENT: Pupils Equal, Pupils Reactive, EOMI, Mucous Membr. Moist/[place] Neck: Supple, Trachea Midline, No JVD, No Thyromegaly Lungs: Decreased Breath Sounds, Crackles, Wheezing. No: Rales, Rhonchi, Rub Cardiovascular: Regular Rate, Regular Rhythm. No: Murmurs, Gallops, Rubs GI/Abdominal Exam: Normal Bowel Sounds, Soft, No Organomegaly, Tender Back Exam: Normal Inspection Extremities: Normal Inspection, Normal Capillary Refill, Pedal Edema Neurological: No New Focal Deficit Psy/Mental Status: Alert Sepsis Event Note - Evaluation Sepsis Screening Result: Severe Sepsis Risk Current Stage of Sepsis: Sepsis Possible Source of Sepsis: Pulmonary - Focused Exam Vital Signs: Vital Signs Temp Pulse Resp BP Pulse Ox Pulse Ox 04/05/19 11:36 97.3 F 102 H 28 H 114/68 94 L 04/05/19 09:42 93 L 04/05/19 08:11 93 94 L 04/05/19 08:10 97.5 F 96 28 H 112/57 L 94 L 04/05/19 06:18 93 L 04/05/19 04:58 98.2 F 89 26 H 105/53 L 96 04/05/19 02:13 93 L 04/05/19 00:17 98.1 F 89 28 H 124/63 98 Respiratory Effort Without Exertion: Dyspneic, Orthopnea Heart Sounds: Distant Capillary Refill, Detail: Less than/Equal to (</=) 2 Seconds Pulse Description: 2+ Normal Peripheral Pulse Location: Radial Skin Exam (Focused Sepsis): Normal Turgor Date Exam was Performed: 04/05/19 Time Exam was Performed: 23:00 - Problem List & Annotations (1) Volume depletion SNOMED Code(s): 89736244 Code(s): E86.9 - VOLUME DEPLETION, UNSPECIFIED Status: Acute Current Visit: Yes (2) Diarrhea SNOMED Code(s): 24420825 Code(s): R19.7 - DIARRHEA, UNSPECIFIED Status: Acute Current Visit: Yes (3) Malaise and fatigue SNOMED Code(s): 204620135 Code(s): R53.81 - OTHER MALAISE; R53.83 - OTHER FATIGUE Status: Acute Current Visit: Yes (4) Generalized body aches SNOMED Code(s): 40905816 Code(s): R52 - PAIN, UNSPECIFIED Status: Acute Current Visit: Yes (5) Hypertension SNOMED Code(s): 93261990 Code(s): I10 - ESSENTIAL (PRIMARY) HYPERTENSION Status: Acute Current Visit: Yes (6) Meniere's disease SNOMED Code(s): 44374589 Code(s): H81.09 - MENIERE'S DISEASE, UNSPECIFIED EAR Status: Acute Current Visit: Yes (7) Dyslipidemia SNOMED Code(s): 254296340 Code(s): E78.5 - HYPERLIPIDEMIA, UNSPECIFIED Status: Acute Current Visit : Yes (8) Deafness in left ear SNOMED Code(s): 743390064 Code(s): H91.92 - UNSPECIFIED HEARING LOSS, LEFT EAR Status: Acute Current Visit: Yes (9) Nausea SNOMED Code(s): 412540716 Code(s): R11.0 - NAUSEA Status: Acute Current Visit: Yes (10) Abdominal bloating SNOMED Code(s): 890442085 Code(s): R14.0 - ABDOMINAL DISTENSION (GASEOUS) Status: Acute Current Visit: Yes (11) Polymyalgia rheumatica SNOMED Code(s): 25957861 Code(s): M35.3 - POLYMYALGIA RHEUMATICA Status: Acute Current Visit: Yes (12) Leukocytosis SNOMED Code(s): 227775638, 294616707 Code(s): D72.829 - ELEVATED WHITE BLOOD CELL COUNT, UNSPECIFIED Status: Acute Current Visit: Yes (13) Thrombocytosis SNOMED Code(s): 9712857 Code(s): D47.3 - ESSENTIAL (HEMORRHAGIC) THROMBOCYTHEMIA Status: Acute Current Visit: Yes (14) Hyponatremia SNOMED Code(s): 93235529 Code(s): E87.1 - HYPO-OSMOLALITY AND HYPONATREMIA Status: Acute Current Visit: Yes (15) Hypochloremia SNOMED Code(s): 02188380 Code(s): E87.8 - OTH DISORDERS OF ELECTROLYTE AND FLUID BALANCE, NEC Status : Acute Current Visit: Yes (16) Acute kidney failure SNOMED Code(s): 34565864 Code(s): N17.9 - ACUTE KIDNEY FAILURE, UNSPECIFIED Status: Acute Current Visit: Yes (17) Hematuria SNOMED Code(s): 29138822 Code(s): R31.9 - HEMATURIA, UNSPECIFIED Status: Acute Current Visit: Yes (18) Hypoalbuminemia SNOMED Code(s): 075708574 Code(s): E88.09 - OT DISORDERS OF PLASMA-PROTEIN METABOLISM, NEC Status: Acute Current Visit: Yes (19) Chronic steroid use SNOMED Code(s): 193518792 Code(s): KAP9743 - Status: Acute Current Visit: Yes (20) H/O: pneumonia SNOMED Code(s): 124581482 Code(s): Z87.01 - PERSONAL HISTORY OF PNEUMONIA (RECURRENT) Status: Acute Current Visit: Yes (21) Physical deconditioning SNOMED Code(s): 12154029021870 Code(s): R53.81 - OTHER MALAISE Status: Acute Current Visit: Yes (22) Hypomagnesemia SNOMED Code(s): 085253992 Code(s): E83.42 - HYPOMAGNESEMIA Status: Acute Current Visit: Yes (23) Hypokalemia SNOMED Code(s): 29084485 Code(s): E87.6 - HYPOKALEMIA Status: Acute Current Visit: Yes - Problem List Review Problem List Initiated/Reviewed/Updated: Yes - Plan Plan:: Sepsis 2/2 pneumonia Hypoxemia, multifactorial Diagnosed with PNA 03/25--> treated with Azithromycin and Cefdinir, completed 5 and 6 days Cefdinir discontinued early due to worsening diarrhea, recent incontinence Worsening diarrhea with inability to tolerate PO Respiratory status continues to worsen with adequate urinary output despite worsening kidney function by chemistry Elevated lactic acid today --> CODE SEPSIS called PLAN - Start on broad spectrum ATB to cover HAP - Start on BiPAP to improve oxygenation and respiratory status - Lasix IV BID - If respiratory status does not improve by AM will get CT scan Acute kidney injury, worsening Acute volume overload with respiratory distress Microscopic hematuria Hyponatremia/Hypochloremia Abdominal bloating Malaise/Fatigue/Generalized body aches Leukocytosis/Thrombocytosis Given IVF since admission-->Crackles and wheezing on physical exam with patchy infiltrates Consulted with nephrology in [place] who agreed with plan to work up for glomerulonephritis Retroperitoneal US negative for any obstruction Proteinuria 900mg/24 hrs C3 normal C4 lower limit of normal Microalbuminuria PLAN - INEZ, ANCA PANEL, ANTI-DNA (DS) AB, ANTIGLOMERULAR BM, CH50, HEPATITIS PANEL, HIV, Ig subclasses - Repeat labs in AM - Monitor respiratory status - [place] as needed for O2 supplementation - If worsening will escalate care to [place] for dialysis. - Scheduled simethicone - PRN Zofran Polymyalgia rheumatica with chronic steroid use Started on steroids July on this year Tapered down to discontinuation late February Patient endorses feeling worse since discontinuation for which PCP restarted prednisone 20mg QD PLAN - 8AM cortisol for evaluation of axis suppression - Hold prednisone for now Hypertension, controlled BP trend 115-149/54-68 Volume depleted on admission, repletion resulted in volume overload Home management with Losartan 25mg PO QD Acute kidney injury precludes use of GIBSON and ARB PLAN - Hold home medications - PRN Hydralazine for BP > 180/100 Meniere's disease Chronic problem No acute symptoms Home management with triamterene and hydrochlorothiazide PLAN - Continue home medication Dyslipidemia No acute issues Out of window from statin benefit Unknown ASCVD risk PLAN - Repeat lipid panel - Recommend PCP to re-evaluate medication - Simvastatin on hold Hypoalbuminemia Acute on chronic deconditioning Decreased exercise tolerance PLAN - Prealbumin level - Dietary consult Volume depletion 2/2 GI loss and poor oral intake, resolved Diarrhea and nausea, resolved Hypomagnesemia/Hypokalemia, resolved PROPHYLAXIS DVT- pharmacologic not indicated, [facility]-not indicated CODE STATUS: FULL CODE DISPOSITION: Admitted under observation to medical floor for volume repletion and symptom control however upgraded to inpatient due to worsening kidney function. Work up for KIP has been ordered and is pending, her respiratory status continued to decline today for which coverage was started for HAP.
[2019-04-05] MEDS ORDERED: Levofloxacin/Dextrose 5%-Water 750 MG in Premix Bag 1 BAG IV ONE (13:00)
[2019-04-05] MEDS: Furosemide 40 MG/4 ML VIAL IVPUSH SCH (20:10)
[2019-04-06] MEDS ORDERED: Piperacillin/Tazobactam 4.5 GM in Sodium Chloride 0.9% 100 ML IV SCH ×2
[2019-04-06] MEDS: Lactulose Soln 10 GM/15 ML 30 ML UD Cup PO SCH ×2 (00:58→05:28)
[2019-04-06] MEDS: Simethicone 80 MG Tab.Chew PO SCH ×7 (00:58→23:47)
[2019-04-06] MEDS: Piperacillin/Tazobactam 4.5 GM in Sodium Chloride 0.9% 100 ML IV SCH ×2 (01:06→14:39)
[2019-04-06] MEDS: Albuterol/Ipratropium 3.0-0.5 MG/3 ML Neb Soln NEB SCH ×6 (02:22→21:58)
[2019-04-06] MEDS: Furosemide 40 MG/4 ML VIAL IVPUSH SCH ×2 (05:37→14:39)
[2019-04-06] MEDS: Calcium Acetate 667 MG Cap PO SCH ×3 (08:42→17:28)
[2019-04-06] MEDS: Meclizine 12.5 MG Tab PO SCH (08:42)
[2019-04-06] MEDS ORDERED: Magnesium Sulfate/Water 2 GM in Premix Bag 1 BAG IV ONE (10:31)
--- NOTE | 2019-04-06 11:20 | CR ---
Chest: 2 views of the chest were obtained. Comparison: Prior chest x-ray of 04/04/19. Diffuse increased density is noted within both sides of the chest slightly more prominent on the left side. Findings are stable from most recent exam. Heart size at the upper limits of normal. Tortuous thoracic aorta is noted. Bony structures show scoliosis within the spine with mild degenerative change. Impression: 1. Diffuse increased lung markings on both sides of the chest. 2. Findings remain stable from most recent chest x-ray. Please correlate if findings represent infectious change. Diagnostic code #3 This report was dictated in [place] Standard Time
--- NOTE | 2019-04-06 16:29 | PCM.SN ---
- Free Text/Narrative Note: Anesthesia Note: Start:1600 Stop:1630 Anesthesia requested for IV start. 22 gauge to right hand started times 2 attempts. Site patent and intact flushed with 10 ml's NS. Rajwinder ROBIN
[2019-04-06] MEDS ORDERED: methylPREDNISolone Sod Succ 125 MG in Sodium Chloride 0.9% 250 ML IV SCH (18:30)
[2019-04-06] MEDS: methylPREDNISolone Sodium Succinate 125 MG/2 ML SDV IVPUSH SCH (18:56)
[2019-04-06] MEDS: Budesonide 0.5 MG/2 ML Neb Susp NEB SCH (21:58)
[2019-04-07] MEDS: Albuterol/Ipratropium 3.0-0.5 MG/3 ML Neb Soln NEB SCH ×6 (02:16→21:27)
[2019-04-07] MEDS: Simethicone 80 MG Tab.Chew PO SCH ×2 (04:55→08:16)
[2019-04-07] MEDS: Furosemide 40 MG/4 ML VIAL IVPUSH SCH ×2 (04:59→13:53)
[2019-04-07] MEDS ORDERED: Piperacillin/Tazobactam 4.5 GM in Sodium Chloride 0.9% 100 ML IV SCH (05:00)
[2019-04-07] MEDS: Budesonide 0.5 MG/2 ML Neb Susp NEB SCH ×2 (06:02→21:27)
[2019-04-07] MEDS: Meclizine 12.5 MG Tab PO SCH (08:14)
[2019-04-07] MEDS: methylPREDNISolone Sodium Succinate 125 MG/2 ML SDV IVPUSH SCH (08:15)
[2019-04-07] MEDS: Calcium Acetate 667 MG Cap PO SCH ×3 (08:15→17:41)
--- NOTE | 2019-04-07 09:18 | PCM.PN ---
- General Info Date of Service: 04/06/19 Subjective Update: BM today x 3 Slept ok Tolerating diet - Patient Data Vitals - Most Recent: Last Vital Signs Temp 97.9 F 04/07/19 08:05 Pulse 98 04/07/19 08:28 Resp 28 H 04/07/19 08:05 BP 120/45 L 04/07/19 08:05 Pulse Ox 93 L 04/07/19 08:48 Weight - Most Recent: 77.156 kg - Exam Quality Assessment: Supplemental Oxygen General: Alert, Oriented, Cooperative, Mild Distress HEENT: Pupils Equal, Pupils Reactive, EOMI, Mucous Membr. Moist/[place] Neck: Supple, Trachea Midline, No JVD, No Thyromegaly Lungs: Decreased Breath Sounds, Crackles, Wheezing (R>L) Cardiovascular: Regular Rate, Regular Rhythm. No: Murmurs, Gallops, Rubs GI/Abdominal Exam: Normal Bowel Sounds, Soft, Non-Tender, No Organomegaly Back Exam: Normal Inspection Extremities: Normal Inspection, Normal Range of Motion, Non-Tender, Pedal Edema Neurological: No New Focal Deficit Sepsis Event Note - Evaluation Sepsis Screening Result: Severe Sepsis Risk - Focused Exam Vital Signs: Vital Signs Temp Temp Pulse Pulse Resp BP BP 04/07/19 08:48 04/07/19 08:30 04/07/19 08:28 98 04/07/19 08:05 97.9 F 95 28 H 120/45 L 04/07/19 06:05 04/07/19 04:42 99.0 F 78 28 H 130/86 04/07/19 02:20 04/07/19 00:00 98.2 F 82 26 H 107/58 L 04/06/19 22:01 Pulse Ox Pulse Ox Pulse Ox 04/07/19 08:48 93 L 04/07/19 08:30 97 04/07/19 08:28 97 04/07/19 08:05 95 04/07/19 06:05 93 L 04/07/19 04:42 98 04/07/19 02:20 96 04/07/19 00:00 93 L 04/06/19 22:01 88 L Date Exam was Performed: 04/07/19 Time Exam was Performed: 09:12 - Problem List & Annotations (1) Diarrhea SNOMED Code(s): 25934156 Code(s): R19.7 - DIARRHEA, UNSPECIFIED Status: Acute Current Visit: Yes (2) Malaise and fatigue SNOMED Code(s): 273559304 Code(s): R53.81 - OTHER MALAISE; R53.83 - OTHER FATIGUE Status: Acute Current Visit: Yes (3) Generalized body aches SNOMED Code(s): 63688697 Code(s): R52 - PAIN, UNSPECIFIED Status: Acute Current Visit: Yes (4) Hypertension SNOMED Code(s): 43383845 Code(s): I10 - ESSENTIAL (PRIMARY) HYPERTENSION Status: Acute Current Visit: Yes (5) Meniere's disease SNOMED Code(s): 72216133 Code(s): H81.09 - MENIERE'S DISEASE, UNSPECIFIED EAR Status: Acute Current Visit: Yes (6) Dyslipidemia SNOMED Code(s): 550887266 Code(s): E78.5 - HYPERLIPIDEMIA, UNSPECIFIED Status: Acute Current Visit : Yes (7) Deafness in left ear SNOMED Code(s): 276211272 Code(s): H91.92 - UNSPECIFIED HEARING LOSS, LEFT EAR Status: Acute Current Visit: Yes (8) Nausea SNOMED Code(s): 528021121 Code(s): R11.0 - NAUSEA Status: Acute Current Visit: Yes (9) Abdominal bloating SNOMED Code(s): 583490251 Code(s): R14.0 - ABDOMINAL DISTENSION (GASEOUS) Status: Acute Current Visit: Yes (10) Polymyalgia rheumatica SNOMED Code(s): 13040440 Code(s): M35.3 - POLYMYALGIA RHEUMATICA Status: Acute Current Visit: Yes (11) Leukocytosis SNOMED Code(s): 128916331, 668867352 Code(s): D72.829 - ELEVATED WHITE BLOOD CELL COUNT, UNSPECIFIED Status: Acute Current Visit: Yes (12) Thrombocytosis SNOMED Code(s): 8005565 Code(s): D47.3 - ESSENTIAL (HEMORRHAGIC) THROMBOCYTHEMIA Status: Acute Current Visit: Yes (13) Hyponatremia SNOMED Code(s): 16463043 Code(s): E87.1 - HYPO-OSMOLALITY AND HYPONATREMIA Status: Acute Current Visit: Yes (14) Hypochloremia SNOMED Code(s): 74487420 Code(s): E87.8 - OTH DISORDERS OF ELECTROLYTE AND FLUID BALANCE, NEC Status : Acute Current Visit: Yes (15) Acute kidney failure SNOMED Code(s): 17852590 Code(s): N17.9 - ACUTE KIDNEY FAILURE, UNSPECIFIED Status: Acute Current Visit: Yes (16) Hematuria SNOMED Code(s): 49319187 Code(s): R31.9 - HEMATURIA, UNSPECIFIED Status: Acute Current Visit: Yes (17) Hypoalbuminemia SNOMED Code(s): 310514561 Code(s): E88.09 - OT DISORDERS OF PLASMA-PROTEIN METABOLISM, NEC Status: Acute Current Visit: Yes (18) Chronic steroid use SNOMED Code(s): 435075769 Code(s): [id number] - Status: Acute Current Visit: Yes (19) H/O: pneumonia SNOMED Code(s): 398373314 Code(s): Z87.01 - PERSONAL HISTORY OF PNEUMONIA (RECURRENT) Status: Acute Current Visit: Yes (20) Physical deconditioning SNOMED Code(s): 42893677883103 Code(s): R53.81 - OTHER MALAISE Status: Acute Current Visit: Yes (21) Hypomagnesemia SNOMED Code(s): 451276264 Code(s): E83.42 - HYPOMAGNESEMIA Status: Acute Current Visit: Yes (22) Hypokalemia SNOMED Code(s): 88686999 Code(s): E87.6 - HYPOKALEMIA Status: Acute Current Visit: Yes (23) Volume depletion SNOMED Code(s): 85838856 Code(s): E86.9 - VOLUME DEPLETION, UNSPECIFIED Status: Acute Current Visit: Yes (24) Hyperphosphatemia SNOMED Code(s): 87980282 Code(s): E83.39 - OTHER DISORDERS OF PHOSPHORUS METABOLISM Status: Acute Current Visit: Yes (25) Hypocalcemia SNOMED Code(s): 9221279 Code(s): E83.51 - HYPOCALCEMIA Status: Acute Current Visit: Yes - Problem List Review Problem List Initiated/Reviewed/Updated: Yes - Plan Plan:: Sepsis 2/2 pneumonia Hypoxemia, multifactorial Diagnosed with PNA 03/25--> treated with Azithromycin and Cefdinir, completed 5 and 6 days Cefdinir discontinued early due to worsening diarrhea, recent incontinence Worsening diarrhea with inability to tolerate PO Respiratory status continues to worsen with adequate urinary output despite worsening kidney function by chemistry Elevated lactic acid 04/05 --> CODE SEPSIS called--> started on HAP coverage SatO2 93-94% on FiO2 30% PLAN - Procalcitonin in AM - Continue Vancomycin, levaquin and Zosyn - F/U pneumonia etiology workup - Continue on BiPAP - Lasix IV BID - Star budesonide nebs and solumedrol Acute kidney injury, stable Acute volume overload with respiratory distress Microscopic hematuria Hyperphosphatemia Hypomagnesemia Abdominal bloating Malaise/Fatigue/Generalized body aches Leukocytosis/Thrombocytosis Given IVF since admission-->Crackles and wheezing on physical exam with patchy infiltrates Consulted with nephrology in [place] who agreed with plan to work up for glomerulonephritis Retroperitoneal US negative for any obstruction Proteinuria 900mg/24 hrs C3 normal C4 lower limit of normal Microalbuminuria PLAN - INEZ, ANCA PANEL, ANTI-DNA (DS) AB, ANTIGLOMERULAR BM, CH50, HEPATITIS PANEL, HIV, Ig subclasses - Repeat labs in AM - Monitor respiratory status - NC and BiPAP as needed for O2 supplementation - If worsening will escalate care to [place] for dialysis. - Scheduled simethicone - PRN Zofran Polymyalgia rheumatica with chronic steroid use Started on steroids July on this year Tapered down to discontinuation late February Patient endorses feeling worse since discontinuation for which PCP restarted prednisone 20mg QD PLAN - 8AM cortisol for evaluation of axis suppression - Hold prednisone for now Hypertension, controlled BP trend 115-102-123/48-68 Volume depleted on admission, repletion resulted in volume overload Home management with Losartan 25mg PO QD Acute kidney injury precludes use of GIBSON and ARB PLAN - Hold home medications - PRN Hydralazine for BP > 180/100 Meniere's disease Chronic problem No acute symptoms Home management with triamterene and hydrochlorothiazide PLAN - Continue home medication Dyslipidemia No acute issues Out of window from statin benefit Unknown ASCVD risk PLAN - Repeat lipid panel - Recommend PCP to re-evaluate medication - Simvastatin on hold Hypoalbuminemia Acute on chronic deconditioning Decreased exercise tolerance PLAN - Prealbumin level - Dietary consult Volume depletion 2/2 GI loss and poor oral intake, resolved Diarrhea and nausea, resolved Hyponatremia, resolved Hypokalemia, resolved Hypochloremia, resolved PROPHYLAXIS DVT- pharmacologic not indicated, [facility]-not indicated CODE STATUS: FULL CODE DISPOSITION: Admitted under observation to medical floor for volume repletion and symptom control however upgraded to inpatient due to worsening kidney function. Work up for KIP has been ordered and is pending, her respiratory status continued to decline for which coverage was started for HAP. Clinically stable today
[2019-04-07] MEDS ORDERED: Simethicone 80 MG Tab.Chew PO PRN (10:07)
[2019-04-07] MEDS ORDERED: Levofloxacin/Dextrose 5%-Water 500 MG in Premix Bag 1 BAG IV SCH (13:00)
[2019-04-07] MEDS: Levofloxacin/Dextrose 5%-Water 500 MG in Premix Bag 1 BAG IV SCH (13:53)
[2019-04-07] MEDS ORDERED: Doxycycline 100 MG Cap PO SCH (15:00)
[2019-04-07] MEDS ORDERED: Cefdinir 300 MG Cap PO SCH (15:00)
--- NOTE | 2019-04-07 17:26 | PCM.PN ---
- General Info Date of Service: 04/06/19 Subjective Update: BM today x 3 Slept ok Tolerating diet - Exam Physical Findings Comments:: Quality Assessment: Supplemental Oxygen General: Alert, Oriented, Cooperative, Mild Distress HEENT: Pupils Equal, Pupils Reactive, EOMI, Mucous Membr. Moist/[place] Neck: Supple, Trachea Midline, No JVD, No Thyromegaly Lungs: Decreased Breath Sounds, Crackles, Wheezing (R>L) Cardiovascular: Regular Rate, Regular Rhythm. No: Murmurs, Gallops, Rubs GI/Abdominal Exam: Normal Bowel Sounds, Soft, Non-Tender, No Organomegaly Back Exam: Normal Inspection Extremities: Normal Inspection, Normal Range of Motion, Non-Tender, Pedal Edema Neurological: No New Focal Deficit Sepsis Event Note - Evaluation Sepsis Screening Result: Severe Sepsis Risk - Focused Exam Vital Signs: Vital Signs Temp Pulse Resp BP Pulse Ox Pulse Ox Pulse Ox 04/07/19 17:12 91 L 04/07/19 13:15 91 L 04/07/19 11:09 97.9 F 82 20 113/53 L 94 L 04/07/19 09:38 92 L 04/07/19 09:14 85 L 04/07/19 08:48 93 L 04/07/19 08:30 97 04/07/19 08:28 98 97 04/07/19 08:05 97.9 F 95 28 H 120/45 L 95 04/07/19 06:05 93 L Date Exam was Performed: 04/07/19 Time Exam was Performed: 17:26 - Problem List & Annotations (1) Diarrhea SNOMED Code(s): 48757185 Code(s): R19.7 - DIARRHEA, UNSPECIFIED Status: Acute Current Visit: Yes (2) Malaise and fatigue SNOMED Code(s): 914529209 Code(s): R53.81 - OTHER MALAISE; R53.83 - OTHER FATIGUE Status: Acute Current Visit: Yes (3) Generalized body aches SNOMED Code(s): 85789961 Code(s): R52 - PAIN, UNSPECIFIED Status: Acute Current Visit: Yes (4) Hypertension SNOMED Code(s): 96537025 Code(s): I10 - ESSENTIAL (PRIMARY) HYPERTENSION Status: Acute Current Visit: Yes (5) Meniere's disease SNOMED Code(s): 57063583 Code(s): H81.09 - MENIERE'S DISEASE, UNSPECIFIED EAR Status: Acute Current Visit: Yes (6) Dyslipidemia SNOMED Code(s): 971131945 Code(s): E78.5 - HYPERLIPIDEMIA, UNSPECIFIED Status: Acute Current Visit : Yes (7) Deafness in left ear SNOMED Code(s): 658388621 Code(s): H91.92 - UNSPECIFIED HEARING LOSS, LEFT EAR Status: Acute Current Visit: Yes (8) Nausea SNOMED Code(s): 896277315 Code(s): R11.0 - NAUSEA Status: Acute Current Visit: Yes (9) Abdominal bloating SNOMED Code(s): 519713300 Code(s): R14.0 - ABDOMINAL DISTENSION (GASEOUS) Status: Acute Current Visit: Yes (10) Polymyalgia rheumatica SNOMED Code(s): 75379262 Code(s): M35.3 - POLYMYALGIA RHEUMATICA Status: Acute Current Visit: Yes (11) Leukocytosis SNOMED Code(s): 089733772, 662060893 Code(s): D72.829 - ELEVATED WHITE BLOOD CELL COUNT, UNSPECIFIED Status: Acute Current Visit: Yes (12) Thrombocytosis SNOMED Code(s): 8154393 Code(s): D47.3 - ESSENTIAL (HEMORRHAGIC) THROMBOCYTHEMIA Status: Acute Current Visit: Yes (13) Hyponatremia SNOMED Code(s): 31753765 Code(s): E87.1 - HYPO-OSMOLALITY AND HYPONATREMIA Status: Acute Current Visit: Yes (14) Hypochloremia SNOMED Code(s): 20109584 Code(s): E87.8 - OTH DISORDERS OF ELECTROLYTE AND FLUID BALANCE, NEC Status : Acute Current Visit: Yes (15) Acute kidney failure SNOMED Code(s): 79538407 Code(s): N17.9 - ACUTE KIDNEY FAILURE, UNSPECIFIED Status: Acute Current Visit: Yes (16) Hematuria SNOMED Code(s): 66734623 Code(s): R31.9 - HEMATURIA, UNSPECIFIED Status: Acute Current Visit: Yes (17) Hypoalbuminemia SNOMED Code(s): 997146079 Code(s): E88.09 - OTH DISORDERS OF PLASMA-PROTEIN METABOLISM, NEC Status: Acute Current Visit: Yes (18) Chronic steroid use SNOMED Code(s): 333568402 Code(s): [id number] - Status: Acute Current Visit: Yes (19) H/O: pneumonia SNOMED Code(s): 171987352 Code(s): Z87.01 - PERSONAL HISTORY OF PNEUMONIA (RECURRENT) Status: Acute Current Visit: Yes (20) Physical deconditioning SNOMED Code(s): 73828817834220 Code(s): R53.81 - OTHER MALAISE Status: Acute Current Visit: Yes (21) Hypomagnesemia SNOMED Code(s): 410154928 Code(s): E83.42 - HYPOMAGNESEMIA Status: Acute Current Visit: Yes (22) Hypokalemia SNOMED Code(s): 52213563 Code(s): E87.6 - HYPOKALEMIA Status: Acute Current Visit: Yes (23) Volume depletion SNOMED Code(s): 21690348 Code(s): E86.9 - VOLUME DEPLETION, UNSPECIFIED Status: Acute Current Visit: Yes (24) Hyperphosphatemia SNOMED Code(s): 46157754 Code(s): E83.39 - OTHER DISORDERS OF PHOSPHORUS METABOLISM Status: Acute Current Visit: Yes (25) Hypocalcemia SNOMED Code(s): 4364748 Code(s): E83.51 - HYPOCALCEMIA Status: Acute Current Visit: Yes - Problem List Review Problem List Initiated/Reviewed/Updated: Yes - Plan Plan:: Sepsis 2/2 pneumonia Hypoxemia, multifactorial Diagnosed with PNA 03/25--> treated with Azithromycin and Cefdinir, completed 5 and 6 days Cefdinir discontinued early due to worsening diarrhea, recent incontinence Worsening diarrhea with inability to tolerate PO Respiratory status continues to worsen with adequate urinary output despite worsening kidney function by chemistry Elevated lactic acid 04/05 --> CODE SEPSIS called--> started on HAP coverage SatO2 93-94% on FiO2 30% PLAN - Procalcitonin in AM - Continue Vancomycin, levaquin and Zosyn - F/U pneumonia etiology workup - Continue on BiPAP - Lasix IV BID - Star budesonide nebs and solumedrol Acute kidney injury, stable Acute volume overload with respiratory distress Microscopic hematuria Hyperphosphatemia Hypomagnesemia Abdominal bloating Malaise/Fatigue/Generalized body aches Leukocytosis/Thrombocytosis Given IVF since admission-->Crackles and wheezing on physical exam with patchy infiltrates Consulted with nephrology in [place] who agreed with plan to work up for glomerulonephritis Retroperitoneal US negative for any obstruction Proteinuria 900mg/24 hrs C3 normal C4 lower limit of normal Microalbuminuria PLAN - INEZ, ANCA PANEL, ANTI-DNA (DS) AB, ANTIGLOMERULAR BM, CH50, HEPATITIS PANEL, HIV, Ig subclasses - Repeat labs in AM - Monitor respiratory status - NC and BiPAP as needed for O2 supplementation - If worsening will escalate care to [place] for dialysis. - Scheduled simethicone - PRN Zofran Polymyalgia rheumatica with chronic steroid use Started on steroids July on this year Tapered down to discontinuation late February Patient endorses feeling worse since discontinuation for which PCP restarted prednisone 20mg QD PLAN - 8AM cortisol for evaluation of axis suppression - Hold prednisone for now Hypertension, controlled BP trend 115-102-123/48-68 Volume depleted on admission, repletion resulted in volume overload Home management with Losartan 25mg PO QD Acute kidney injury precludes use of GIBSON and ARB PLAN - Hold home medications - PRN Hydralazine for BP > 180/100 Meniere's disease Chronic problem No acute symptoms Home management with triamterene and hydrochlorothiazide PLAN - Continue home medication Dyslipidemia No acute issues Out of window from statin benefit Unknown ASCVD risk PLAN - Repeat lipid panel - Recommend PCP to re-evaluate medication - Simvastatin on hold Hypoalbuminemia Acute on chronic deconditioning Decreased exercise tolerance PLAN - Prealbumin level - Dietary consult Volume depletion 2/2 GI loss and poor oral intake, resolved Diarrhea and nausea, resolved Hyponatremia, resolved Hypokalemia, resolved Hypochloremia, resolved PROPHYLAXIS DVT- pharmacologic not indicated, [facility]-not indicated CODE STATUS: FULL CODE DISPOSITION: Admitted under observation to medical floor for volume repletion and symptom control however upgraded to inpatient due to worsening kidney function. Work up for KIP has been ordered and is pending, her respiratory status continued to decline for which coverage was started for HAP. Clinically stable today
--- NOTE | 2019-04-07 17:35 | PCM.PN ---
- General Info Date of Service: 04/07/19 Subjective Update: Feeling better Slept ok Tolerating diet - Patient Data Vitals - Most Recent: Last Vital Signs Temp 97.9 F 04/07/19 11:09 Pulse 82 04/07/19 11:09 Resp 20 04/07/19 11:09 BP 113/53 L 04/07/19 11:09 Pulse Ox 91 L 04/07/19 17:12 Weight - Most Recent: 77.156 kg - Exam Quality Assessment: Supplemental Oxygen General: Alert, Oriented, Cooperative, Mild Distress HEENT: Pupils Equal, Pupils Reactive, EOMI, Mucous Membr. Moist/[place] Neck: Supple, Trachea Midline, No JVD, No Thyromegaly, +2 Carotid Pulse wo Bruit. No: Lymphadenopathy Lungs: Clear to Auscultation, Decreased Breath Sounds, Crackles, Wheezing. No: Rales, Rhonchi, Rub, Stridor Cardiovascular: Regular Rate, Regular Rhythm. No: Murmurs, Gallops, Rubs GI/Abdominal Exam: Normal Bowel Sounds, Soft, Non-Tender, No Organomegaly, No Distention, No Abnormal Bruit Back Exam: Normal Inspection, Full Range of Motion. No: CVA Tenderness (L), CVA Tenderness (R) Extremities: Normal Inspection, Normal Range of Motion, Normal Capillary Refill , Pedal Edema Sepsis Event Note - Evaluation Sepsis Screening Result: Severe Sepsis Risk - Focused Exam Vital Signs: Vital Signs Temp Pulse Resp BP Pulse Ox Pulse Ox Pulse Ox 04/07/19 17:12 91 L 04/07/19 13:15 91 L 04/07/19 11:09 97.9 F 82 20 113/53 L 94 L 04/07/19 09:38 92 L 04/07/19 09:14 85 L 04/07/19 08:48 93 L 04/07/19 08:30 97 04/07/19 08:28 98 97 04/07/19 08:05 97.9 F 95 28 H 120/45 L 95 04/07/19 06:05 93 L Date Exam was Performed: 04/07/19 Time Exam was Performed: 17:30 - Problem List & Annotations (1) Diarrhea SNOMED Code(s): 60083693 Code(s): R19.7 - DIARRHEA, UNSPECIFIED Status: Acute Current Visit: Yes (2) Malaise and fatigue SNOMED Code(s): 407812455 Code(s): R53.81 - OTHER MALAISE; R53.83 - OTHER FATIGUE Status: Acute Current Visit: Yes (3) Generalized body aches SNOMED Code(s): 64980356 Code(s): R52 - PAIN, UNSPECIFIED Status: Acute Current Visit: Yes (4) Hypertension SNOMED Code(s): 01021584 Code(s): I10 - ESSENTIAL (PRIMARY) HYPERTENSION Status: Acute Current Visit: Yes (5) Meniere's disease SNOMED Code(s): 77364643 Code(s): H81.09 - MENIERE'S DISEASE, UNSPECIFIED EAR Status: Acute Current Visit: Yes (6) Dyslipidemia SNOMED Code(s): 350122735 Code(s): E78.5 - HYPERLIPIDEMIA, UNSPECIFIED Status: Acute Current Visit : Yes (7) Deafness in left ear SNOMED Code(s): 419100152 Code(s): H91.92 - UNSPECIFIED HEARING LOSS, LEFT EAR Status: Acute Current Visit: Yes (8) Nausea SNOMED Code(s): 020521385 Code(s): R11.0 - NAUSEA Status: Acute Current Visit: Yes (9) Abdominal bloating SNOMED Code(s): 657335476 Code(s): R14.0 - ABDOMINAL DISTENSION (GASEOUS) Status: Acute Current Visit: Yes (10) Polymyalgia rheumatica SNOMED Code(s): 61972173 Code(s): M35.3 - POLYMYALGIA RHEUMATICA Status: Acute Current Visit: Yes (11) Leukocytosis SNOMED Code(s): 469706898, 092274182 Code(s): D72.829 - ELEVATED WHITE BLOOD CELL COUNT, UNSPECIFIED Status: Acute Current Visit: Yes (12) Thrombocytosis SNOMED Code(s): 9099005 Code(s): D47.3 - ESSENTIAL (HEMORRHAGIC) THROMBOCYTHEMIA Status: Acute Current Visit: Yes (13) Hyponatremia SNOMED Code(s): 66562153 Code(s): E87.1 - HYPO-OSMOLALITY AND HYPONATREMIA Status: Acute Current Visit: Yes (14) Hypochloremia SNOMED Code(s): 09791655 Code(s): E87.8 - OTH DISORDERS OF ELECTROLYTE AND FLUID BALANCE, NEC Status : Acute Current Visit: Yes (15) Acute kidney failure SNOMED Code(s): 53858450 Code(s): N17.9 - ACUTE KIDNEY FAILURE, UNSPECIFIED Status: Acute Current Visit: Yes (16) Hematuria SNOMED Code(s): 77842375 Code(s): R31.9 - HEMATURIA, UNSPECIFIED Status: Acute Current Visit: Yes (17) Hypoalbuminemia SNOMED Code(s): 280640708 Code(s): E88.09 - OTH DISORDERS OF PLASMA-PROTEIN METABOLISM, NEC Status: Acute Current Visit: Yes (18) Chronic steroid use SNOMED Code(s): 585642015 Code(s): LUU4745 - Status: Acute Current Visit: Yes (19) H/O: pneumonia SNOMED Code(s): 266688084 Code(s): Z87.01 - PERSONAL HISTORY OF PNEUMONIA (RECURRENT) Status: Acute Current Visit: Yes (20) Physical deconditioning SNOMED Code(s): 53249437920036 Code(s): R53.81 - OTHER MALAISE Status: Acute Current Visit: Yes (21) Hypomagnesemia SNOMED Code(s): 723688818 Code(s): E83.42 - HYPOMAGNESEMIA Status: Acute Current Visit: Yes (22) Hypokalemia SNOMED Code(s): 93386576 Code(s): E87.6 - HYPOKALEMIA Status: Acute Current Visit: Yes (23) Volume depletion SNOMED Code(s): 99207037 Code(s): E86.9 - VOLUME DEPLETION, UNSPECIFIED Status: Acute Current Visit: Yes (24) Hyperphosphatemia SNOMED Code(s): 76068223 Code(s): E83.39 - OTHER DISORDERS OF PHOSPHORUS METABOLISM Status: Acute Current Visit: Yes (25) Hypocalcemia SNOMED Code(s): 1296481 Code(s): E83.51 - HYPOCALCEMIA Status: Acute Current Visit: Yes - Problem List Review Problem List Initiated/Reviewed/Updated: Yes - Plan Plan:: Sepsis 2/2 pneumonia Hypoxemia, multifactorial Diagnosed with PNA 03/25--> treated with Azithromycin and Cefdinir, completed 5 and 6 days Cefdinir discontinued early due to worsening diarrhea, recent incontinence Worsening diarrhea with inability to tolerate PO Respiratory status continues to worsen with adequate urinary output despite worsening kidney function by chemistry Elevated lactic acid 04/05 --> CODE SEPSIS called--> started on HAP coverage SatO2 93-94% on FiO2 30% Tmax 98.6 PLAN - Procalcitonin in AM - Continue Vancomycin, levaquin and Zosyn - F/U pneumonia etiology workup - Continue on BiPAP - Lasix IV BID - Continue budesonide nebs and solumedrol Acute kidney injury, stable Acute volume overload with respiratory distress Microscopic hematuria Hyperphosphatemia Hypomagnesemia Abdominal bloating Malaise/Fatigue/Generalized body aches Leukocytosis/Thrombocytosis Given IVF since admission-->Crackles and wheezing on physical exam with patchy infiltrates Consulted with nephrology in [place] who agreed with plan to work up for glomerulonephritis Retroperitoneal US negative for any obstruction Proteinuria 900mg/24 hrs C3 normal C4 lower limit of normal Microalbuminuria Hepatitis panel negative HIV negative PLAN - INEZ, ANCA PANEL, ANTI-DNA (DS) AB, ANTIGLOMERULAR BM, CH50, Ig subclasses - Repeat labs in AM - Monitor respiratory status - NC and BiPAP as needed for O2 supplementation - If worsening will escalate care to [place] for dialysis. - Scheduled simethicone - PRN Zofran Polymyalgia rheumatica with chronic steroid use Started on steroids July on this year Tapered down to discontinuation late February Patient endorses feeling worse since discontinuation for which PCP restarted prednisone 20mg QD PLAN - 8AM cortisol for evaluation of axis suppression - Hold prednisone for now Hypertension, controlled BP trend 102-120/48-62 Volume depleted on admission, repletion resulted in volume overload Home management with Losartan 25mg PO QD Acute kidney injury precludes use of GIBSON and ARB PLAN - Hold home medications - PRN Hydralazine for BP > 180/100 Meniere's disease Chronic problem No acute symptoms Home management with triamterene and hydrochlorothiazide PLAN - Continue home medication Dyslipidemia No acute issues Out of window from statin benefit Unknown ASCVD risk PLAN - Repeat lipid panel - Recommend PCP to re-evaluate medication - Simvastatin on hold Hypoalbuminemia Acute on chronic deconditioning Decreased exercise tolerance PLAN - Prealbumin level - Dietary consult Volume depletion 2/2 GI loss and poor oral intake, resolved Diarrhea and nausea, resolved Hyponatremia, resolved Hypokalemia, resolved Hypochloremia, resolved PROPHYLAXIS DVT- pharmacologic not indicated, [facility]-not indicated CODE STATUS: FULL CODE DISPOSITION: Admitted under observation to medical floor for volume repletion and symptom control however upgraded to inpatient due to worsening kidney function. Work up for KIP has been ordered and is pending, her respiratory status continued to decline for which coverage was started for HAP. Clinically stable today
[2019-04-07] MEDS: Piperacillin/Tazobactam 4.5 GM in Sodium Chloride 0.9% 100 ML IV SCH (17:42)
--- NOTE | 2019-04-07 20:38 | CT ---
CT chest Technique: Multiple axial sections through the chest were obtained. Intravenous contrast was not utilized. Comparison: Prior chest x-ray performed on 04/06/19. Limitations: Motion artifact is seen. Findings: Lung window setting shows patchy areas of increased density throughout both lungs. Findings appear to be fairly stable from previous chest x-ray. Slight atherosclerotic calcification is noted within the thoracic aorta without aneurysm. No mediastinal adenopathy is seen. No axillary adenopathy is noted. No pericardial thickening is seen. Small portion of the noncontrast upper abdominal structures appear within normal limits. Small pleural effusion is seen on the left side. Heart does not appear enlarged. Impression: 1. Patchy areas of increased density within both lungs. Findings are fairly similar to prior chest x-ray. Differential is fairly extensive but please correlate if the patient has any infectious change. Findings could also represent atypical pneumonia as well as viral pneumonia. 2. Small left-sided pleural effusion. 3. Other findings which are believed to be incidental. Diagnostic code #3 This report was dictated in [place] Standard Time
[2019-04-08] MEDS: Albuterol/Ipratropium 3.0-0.5 MG/3 ML Neb Soln NEB SCH ×6 (01:42→21:07)
[2019-04-08] MEDS: Piperacillin/Tazobactam 4.5 GM in Sodium Chloride 0.9% 100 ML IV SCH ×2 (05:06→17:15)
[2019-04-08] MEDS: Budesonide 0.5 MG/2 ML Neb Susp NEB SCH ×2 (05:23→21:07)
[2019-04-08] MEDS: Calcium Acetate 667 MG Cap PO SCH ×3 (06:18→17:16)
[2019-04-08] MEDS: Furosemide 40 MG/4 ML VIAL IVPUSH SCH ×2 (06:18→15:28)
[2019-04-08] MEDS: Meclizine 12.5 MG Tab PO SCH (08:44)
[2019-04-08] MEDS: methylPREDNISolone Sodium Succinate 125 MG/2 ML SDV IVPUSH SCH (08:44)
[2019-04-08] MEDS ORDERED: Magnesium Sulfate/Water 2 GM in Premix Bag 1 BAG IV ONE (10:29)
[2019-04-08] MEDS: Potassium Chloride 10 MEQ in Premix Bag 1 BAG IV SCH ×4 (10:55→17:15)
--- NOTE | 2019-04-08 17:44 | PCM.PN ---
- General Info Date of Service: 04/08/19 Subjective Update: Feeling ok Slept better Tolerating diet - Patient Data Vitals - Most Recent: Last Vital Signs Temp 97.5 F 04/08/19 12:36 Pulse 93 04/08/19 12:36 Resp 24 H 04/08/19 12:36 BP 128/51 L 04/08/19 12:36 Pulse Ox 98 04/08/19 17:00 Weight - Most Recent: 75.296 kg - Exam Quality Assessment: Supplemental Oxygen, Urine Catheter General: Alert, Oriented, Cooperative, Mild Distress HEENT: Pupils Equal, Pupils Reactive, EOMI, Mucous Membr. Moist/[place] Neck: Supple, Trachea Midline, No JVD, No Thyromegaly Lungs: Normal Respiratory Effort, Crackles. No: Rales, Rhonchi, Rub, Wheezing Cardiovascular: Regular Rate, Regular Rhythm. No: Murmurs, Gallops, Rubs GI/Abdominal Exam: Normal Bowel Sounds, Soft, Non-Tender, No Organomegaly Back Exam: Normal Inspection Extremities: Normal Inspection, Pedal Edema Sepsis Event Note - Evaluation Sepsis Screening Result: No Definite Risk - Focused Exam Vital Signs: Vital Signs Temp Pulse Resp BP Pulse Ox Pulse Ox Pulse Ox 04/08/19 17:00 98 04/08/19 13:39 91 L 04/08/19 12:36 97.5 F 93 24 H 128/51 L 97 04/08/19 09:08 92 L 04/08/19 08:10 86 L 04/08/19 08:07 98.2 F 98 24 H 131/54 L 91 L 04/08/19 07:55 98 Date Exam was Performed: 04/09/19 Time Exam was Performed: 21:50 - Problem List & Annotations (1) Diarrhea SNOMED Code(s): 42127238 Code(s): R19.7 - DIARRHEA, UNSPECIFIED Status: Acute Current Visit: Yes (2) Malaise and fatigue SNOMED Code(s): 724818593 Code(s): R53.81 - OTHER MALAISE; R53.83 - OTHER FATIGUE Status: Acute Current Visit: Yes (3) Generalized body aches SNOMED Code(s): 26089155 Code(s): R52 - PAIN, UNSPECIFIED Status: Acute Current Visit: Yes (4) Hypertension SNOMED Code(s): 03996859 Code(s): I10 - ESSENTIAL (PRIMARY) HYPERTENSION Status: Acute Current Visit: Yes (5) Meniere's disease SNOMED Code(s): 72622221 Code(s): H81.09 - MENIERE'S DISEASE, UNSPECIFIED EAR Status: Acute Current Visit: Yes (6) Dyslipidemia SNOMED Code(s): 082732679 Code(s): E78.5 - HYPERLIPIDEMIA, UNSPECIFIED Status: Acute Current Visit : Yes (7) Deafness in left ear SNOMED Code(s): 145521696 Code(s): H91.92 - UNSPECIFIED HEARING LOSS, LEFT EAR Status: Acute Current Visit: Yes (8) Nausea SNOMED Code(s): 753983554 Code(s): R11.0 - NAUSEA Status: Acute Current Visit: Yes (9) Abdominal bloating SNOMED Code(s): 930648016 Code(s): R14.0 - ABDOMINAL DISTENSION (GASEOUS) Status: Acute Current Visit: Yes (10) Polymyalgia rheumatica SNOMED Code(s): 01907583 Code(s): M35.3 - POLYMYALGIA RHEUMATICA Status: Acute Current Visit: Yes (11) Leukocytosis SNOMED Code(s): 407305833, 585417002 Code(s): D72.829 - ELEVATED WHITE BLOOD CELL COUNT, UNSPECIFIED Status: Acute Current Visit: Yes (12) Thrombocytosis SNOMED Code(s): 3275387 Code(s): D47.3 - ESSENTIAL (HEMORRHAGIC) THROMBOCYTHEMIA Status: Acute Current Visit: Yes (13) Hyponatremia SNOMED Code(s): 05142889 Code(s): E87.1 - HYPO-OSMOLALITY AND HYPONATREMIA Status: Acute Current Visit: Yes (14) Hypochloremia SNOMED Code(s): 28661261 Code(s): E87.8 - OTH DISORDERS OF ELECTROLYTE AND FLUID BALANCE, NEC Status : Acute Current Visit: Yes (15) Acute kidney failure SNOMED Code(s): 86245487 Code(s): N17.9 - ACUTE KIDNEY FAILURE, UNSPECIFIED Status: Acute Current Visit: Yes (16) Hematuria SNOMED Code(s): 41692337 Code(s): R31.9 - HEMATURIA, UNSPECIFIED Status: Acute Current Visit: Yes (17) Hypoalbuminemia SNOMED Code(s): 972612089 Code(s): E88.09 - OTH DISORDERS OF PLASMA-PROTEIN METABOLISM, NEC Status: Acute Current Visit: Yes (18) Chronic steroid use SNOMED Code(s): 341602600 Code(s): [id number] - Status: Acute Current Visit: Yes (19) H/O: pneumonia SNOMED Code(s): 639727053 Code(s): Z87.01 - PERSONAL HISTORY OF PNEUMONIA (RECURRENT) Status: Acute Current Visit: Yes (20) Physical deconditioning SNOMED Code(s): 89986093500756 Code(s): R53.81 - OTHER MALAISE Status: Acute Current Visit: Yes (21) Hypomagnesemia SNOMED Code(s): 280609145 Code(s): E83.42 - HYPOMAGNESEMIA Status: Acute Current Visit: Yes (22) Hypokalemia SNOMED Code(s): 00340182 Code(s): E87.6 - HYPOKALEMIA Status: Acute Current Visit: Yes (23) Volume depletion SNOMED Code(s): 34769768 Code(s): E86.9 - VOLUME DEPLETION, UNSPECIFIED Status: Acute Current Visit: Yes (24) Hyperphosphatemia SNOMED Code(s): 15317364 Code(s): E83.39 - OTHER DISORDERS OF PHOSPHORUS METABOLISM Status: Acute Current Visit: Yes (25) Hypocalcemia SNOMED Code(s): 5572617 Code(s): E83.51 - HYPOCALCEMIA Status: Acute Current Visit: Yes - Problem List Review Problem List Initiated/Reviewed/Updated: Yes - Plan Plan:: Sepsis 2/2 pneumonia Hypoxemia, multifactorial Diagnosed with PNA 03/25--> treated with Azithromycin and Cefdinir, completed 5 and 6 days Cefdinir discontinued early due to worsening diarrhea, recent incontinence Worsening diarrhea with inability to tolerate PO Respiratory status continues to worsen with adequate urinary output despite worsening kidney function by chemistry Elevated lactic acid 04/05 --> CODE SEPSIS called--> started on HAP coverage Tmax 98.8 PLAN - Continue Vancomycin, levaquin and Zosyn - F/U pneumonia etiology workup - BiPAP as needed - Lasix IV BID - Continue budesonide nebs and solumedrol Acute kidney injury, worsening Acute volume overload with respiratory distress Microscopic hematuria Hyperphosphatemia Hypomagnesemia Abdominal bloating Malaise/Fatigue/Generalized body aches Leukocytosis/Thrombocytosis Given IVF since admission-->Crackles and wheezing on physical exam with patchy infiltrates Consulted with nephrology in [place] who agreed with plan to work up for glomerulonephritis Retroperitoneal US negative for any obstruction Proteinuria 900mg/24 hrs C3 normal C4 lower limit of normal Microalbuminuria Hepatitis panel negative HIV negative UO 3150 PLAN - INEZ, ANCA PANEL, ANTI-DNA (DS) AB, ANTIGLOMERULAR BM, CH50, Ig - Repeat labs in AM - Monitor respiratory status - NC and BiPAP as needed for O2 supplementation - If worsening will escalate care to [place] for dialysis. - Scheduled simethicone - PRN Zofran Polymyalgia rheumatica with chronic steroid use Started on steroids July on this year Tapered down to discontinuation late February Patient endorses feeling worse since discontinuation for which PCP restarted prednisone 20mg QD PLAN - 8AM cortisol for evaluation of axis suppression - Hold prednisone for now Hypertension, controlled BP trend 118-157/54-76 Volume depleted on admission, repletion resulted in volume overload Home management with Losartan 25mg PO QD Acute kidney injury precludes use of GIBSON and ARB PLAN - Hold home medications - PRN Hydralazine for BP > 180/100 Meniere's disease Chronic problem No acute symptoms Home management with triamterene and hydrochlorothiazide PLAN - Continue home medication Dyslipidemia No acute issues Out of window from statin benefit Unknown ASCVD risk PLAN - Repeat lipid panel - Recommend PCP to re-evaluate medication - Simvastatin on hold Hypoalbuminemia Acute on chronic deconditioning Decreased exercise tolerance PLAN - Prealbumin level - Dietary consult Volume depletion 2/2 GI loss and poor oral intake, resolved Diarrhea and nausea, resolved Hyponatremia, resolved Hypokalemia, resolved Hypochloremia, resolved PROPHYLAXIS DVT- pharmacologic not indicated, [facility]-not indicated CODE STATUS: FULL CODE DISPOSITION: Admitted under observation to medical floor for volume repletion and symptom control however upgraded to inpatient due to worsening kidney function. Work up for KIP has been ordered and is pending, her respiratory status continued to decline for which coverage was started for HAP. Clinically stable today
[2019-04-09] MEDS: Albuterol/Ipratropium 3.0-0.5 MG/3 ML Neb Soln NEB SCH ×6 (01:22→21:02)
[2019-04-09] MEDS: Budesonide 0.5 MG/2 ML Neb Susp NEB SCH ×2 (05:20→20:49)
[2019-04-09] MEDS: Furosemide 40 MG/4 ML VIAL IVPUSH SCH ×2 (06:05→13:48)
[2019-04-09] MEDS: Piperacillin/Tazobactam 4.5 GM in Sodium Chloride 0.9% 100 ML IV SCH ×2 (06:05→17:51)
[2019-04-09] MEDS: Calcium Acetate 667 MG Cap PO SCH ×3 (06:06→16:29)
[2019-04-09] MEDS: Meclizine 12.5 MG Tab PO SCH (08:33)
[2019-04-09] MEDS: methylPREDNISolone Sodium Succinate 125 MG/2 ML SDV IVPUSH SCH (08:33)
[2019-04-09] MEDS: Potassium Chloride 10 MEQ in Premix Bag 1 BAG IV SCH ×2 (10:46→12:05)
[2019-04-09] MEDS ORDERED: Aspirin 81 MG Tab.Chew PO ONE (11:22)
[2019-04-09] MEDS ORDERED: Nitroglycerin 0.4 MG Tab.SL SL PRN (11:27)
--- NOTE | 2019-04-09 14:02 | CR ---
Chest: Portable view of the chest was obtained. Comparison: Prior chest x-ray of 04/06/19. Heart is enlarged. Diffuse increased lung markings are seen. Other parenchymal densities are significantly improved from previous exam. Bony structures show scoliosis with the spine. Disc space narrowing is scattered within the spine. Impression: 1. Chest is improved from previous exam. 2. Increased lung markings remain possibly due to chronic pulmonary vascular congestion. Diagnostic code #3 This report was dictated in [place] Standard Time
[2019-04-09] MEDS: Levofloxacin/Dextrose 5%-Water 500 MG in Premix Bag 1 BAG IV SCH (14:03)
--- NOTE | 2019-04-09 22:07 | PCM.PN ---
- General Info Date of Service: 04/09/19 Subjective Update: Multiple BMs in the past day Slept ok Tolerating diet - Patient Data Weight - Most Recent: 75.296 kg - Exam General: Alert, Oriented, Cooperative, No Acute Distress HEENT: Pupils Equal, Pupils Reactive, EOMI, Mucous Membr. Moist/[place] Neck: Supple, Trachea Midline Lungs: Decreased Breath Sounds, Crackles (interval improvement). No: Rales, Rhonchi, Wheezing Cardiovascular: Regular Rate, Regular Rhythm GI/Abdominal Exam: Normal Bowel Sounds, Soft, Non-Tender Extremities: Pedal Edema Sepsis Event Note - Evaluation Sepsis Screening Result: No Definite Risk - Focused Exam Vital Signs: Vital Signs Temp Pulse Resp BP Pulse Ox Pulse Ox 04/09/19 20:49 95 04/09/19 19:33 98.2 F 86 20 142/65 H 98 04/09/19 17:21 97 04/09/19 15:39 84 94 L 04/09/19 15:36 32 H 04/09/19 15:23 98.2 F 87 32 H 139/57 L 93 L 04/09/19 13:53 98 04/09/19 13:46 85 134/70 99 04/09/19 12:09 72 96 04/09/19 12:07 69 95 04/09/19 11:57 81 104/68 93 L 04/09/19 11:53 57 L 78/44 L 89 L 04/09/19 11:48 65 89 L 04/09/19 11:39 150/69 H 04/09/19 11:36 81 93 L 04/09/19 11:33 85 150/69 H 91 L 04/09/19 11:27 98.2 F 81 24 H 157/67 H 93 L Date Exam was Performed: 04/09/19 Time Exam was Performed: 22:01 - Problem List & Annotations (1) Diarrhea SNOMED Code(s): 16259960 Code(s): R19.7 - DIARRHEA, UNSPECIFIED Status: Acute Current Visit: Yes (2) Malaise and fatigue SNOMED Code(s): 906575547 Code(s): R53.81 - OTHER MALAISE; R53.83 - OTHER FATIGUE Status: Acute Current Visit: Yes (3) Generalized body aches SNOMED Code(s): 06117223 Code(s): R52 - PAIN, UNSPECIFIED Status: Acute Current Visit: Yes (4) Hypertension SNOMED Code(s): 37447671 Code(s): I10 - ESSENTIAL (PRIMARY) HYPERTENSION Status: Acute Current Visit: Yes (5) Meniere's disease SNOMED Code(s): 14572570 Code(s): H81.09 - MENIERE'S DISEASE, UNSPECIFIED EAR Status: Acute Current Visit: Yes (6) Dyslipidemia SNOMED Code(s): 584081530 Code(s): E78.5 - HYPERLIPIDEMIA, UNSPECIFIED Status: Acute Current Visit : Yes (7) Deafness in left ear SNOMED Code(s): 951447835 Code(s): H91.92 - UNSPECIFIED HEARING LOSS, LEFT EAR Status: Acute Current Visit: Yes (8) Nausea SNOMED Code(s): 368967395 Code(s): R11.0 - NAUSEA Status: Acute Current Visit: Yes (9) Abdominal bloating SNOMED Code(s): 217414795 Code(s): R14.0 - ABDOMINAL DISTENSION (GASEOUS) Status: Acute Current Visit: Yes (10) Polymyalgia rheumatica SNOMED Code(s): 10341454 Code(s): M35.3 - POLYMYALGIA RHEUMATICA Status: Acute Current Visit: Yes (11) Leukocytosis SNOMED Code(s): 520483919, 653773640 Code(s): D72.829 - ELEVATED WHITE BLOOD CELL COUNT, UNSPECIFIED Status: Acute Current Visit: Yes (12) Thrombocytosis SNOMED Code(s): 4469303 Code(s): D47.3 - ESSENTIAL (HEMORRHAGIC) THROMBOCYTHEMIA Status: Acute Current Visit: Yes (13) Hyponatremia SNOMED Code(s): 87418026 Code(s): E87.1 - HYPO-OSMOLALITY AND HYPONATREMIA Status: Acute Current Visit: Yes (14) Hypochloremia SNOMED Code(s): 20659759 Code(s): E87.8 - OTH DISORDERS OF ELECTROLYTE AND FLUID BALANCE, NEC Status : Acute Current Visit: Yes (15) Acute kidney failure SNOMED Code(s): 89710780 Code(s): N17.9 - ACUTE KIDNEY FAILURE, UNSPECIFIED Status: Acute Current Visit: Yes (16) Hematuria SNOMED Code(s): 69677976 Code(s): R31.9 - HEMATURIA, UNSPECIFIED Status: Acute Current Visit: Yes (17) Hypoalbuminemia SNOMED Code(s): 095730517 Code(s): E88.09 - OTH DISORDERS OF PLASMA-PROTEIN METABOLISM, NEC Status: Acute Current Visit: Yes (18) Chronic steroid use SNOMED Code(s): 859169172 Code(s): [id number] - Status: Acute Current Visit: Yes (19) H/O: pneumonia SNOMED Code(s): 242820632 Code(s): Z87.01 - PERSONAL HISTORY OF PNEUMONIA (RECURRENT) Status: Acute Current Visit: Yes (20) Physical deconditioning SNOMED Code(s): 48706511955923 Code(s): R53.81 - OTHER MALAISE Status: Acute Current Visit: Yes (21) Hypomagnesemia SNOMED Code(s): 843859882 Code(s): E83.42 - HYPOMAGNESEMIA Status: Acute Current Visit: Yes (22) Hypokalemia SNOMED Code(s): 12972171 Code(s): E87.6 - HYPOKALEMIA Status: Acute Current Visit: Yes (23) Volume depletion SNOMED Code(s): 46339496 Code(s): E86.9 - VOLUME DEPLETION, UNSPECIFIED Status: Acute Current Visit: Yes (24) Hyperphosphatemia SNOMED Code(s): 21983744 Code(s): E83.39 - OTHER DISORDERS OF PHOSPHORUS METABOLISM Status: Acute Current Visit: Yes (25) Hypocalcemia SNOMED Code(s): 4749106 Code(s): E83.51 - HYPOCALCEMIA Status: Acute Current Visit: Yes - Problem List Review Problem List Initiated/Reviewed/Updated: Yes - Plan Plan:: Sepsis 2/2 pneumonia Hypoxemia, multifactorial Diagnosed with PNA 03/25--> treated with Azithromycin and Cefdinir, completed 5 and 6 days Cefdinir discontinued early due to worsening diarrhea, recent incontinence Worsening diarrhea with inability to tolerate PO Respiratory status continues to worsen with adequate urinary output despite worsening kidney function by chemistry Elevated lactic acid 04/05 --> CODE SEPSIS called--> started on HAP coverage Tmax 98.8 PLAN - Continue Vancomycin, levaquin and Zosyn - F/U pneumonia etiology workup - BiPAP as needed - Lasix IV BID - Continue budesonide nebs and solumedrol Acute kidney injury, worsening Acute volume overload with respiratory distress Microscopic hematuria Hyperphosphatemia Hypomagnesemia Abdominal bloating Malaise/Fatigue/Generalized body aches Leukocytosis/Thrombocytosis Given IVF since admission-->Crackles and wheezing on physical exam with patchy infiltrates Consulted with nephrology in [place] who agreed with plan to work up for glomerulonephritis Retroperitoneal US negative for any obstruction Proteinuria 900mg/24 hrs C3 normal C4 lower limit of normal Microalbuminuria Hepatitis panel negative HIV negative UO 4000 PLAN - INEZ, ANCA PANEL, ANTI-DNA (DS) AB, ANTIGLOMERULAR BM, CH50, Ig - Repeat labs in AM - Monitor respiratory status - NC and BiPAP as needed for O2 supplementation - If worsening will escalate care to [place] for dialysis. - Scheduled simethicone - PRN Zofran Polymyalgia rheumatica with chronic steroid use Started on steroids July on this year Tapered down to discontinuation late February Patient endorses feeling worse since discontinuation for which PCP restarted prednisone 20mg QD PLAN - 8AM cortisol for evaluation of axis suppression - Hold prednisone for now Hypertension, controlled BP trend 103-135/54-76 Volume depleted on admission, repletion resulted in volume overload Home management with Losartan 25mg PO QD Acute kidney injury precludes use of GIBSON and ARB PLAN - Hold home medications - PRN Hydralazine for BP > 180/100 Meniere's disease Chronic problem No acute symptoms Home management with triamterene and hydrochlorothiazide PLAN - Continue home medication Dyslipidemia No acute issues Out of window from statin benefit Unknown ASCVD risk PLAN - Repeat lipid panel - Recommend PCP to re-evaluate medication - Simvastatin on hold Hypoalbuminemia Acute on chronic deconditioning Decreased exercise tolerance PLAN - Prealbumin level - Dietary consult Volume depletion 2/2 GI loss and poor oral intake, resolved Diarrhea and nausea, resolved Hyponatremia, resolved Hypokalemia, resolved Hypochloremia, resolved PROPHYLAXIS DVT- pharmacologic not indicated, [facility]-not indicated CODE STATUS: FULL CODE DISPOSITION: Admitted under observation to medical floor for volume repletion and symptom control however upgraded to inpatient due to worsening kidney function. Patient requires hospital stay > 9due to hypoxemia and worsening kidney function.
[2019-04-10] MEDS: Albuterol/Ipratropium 3.0-0.5 MG/3 ML Neb Soln NEB SCH ×4 (02:34→13:33)
[2019-04-10] MEDS: Piperacillin/Tazobactam 4.5 GM in Sodium Chloride 0.9% 100 ML IV SCH (04:34)
[2019-04-10] MEDS: Furosemide 40 MG/4 ML VIAL IVPUSH SCH (06:23)
[2019-04-10] MEDS: Calcium Acetate 667 MG Cap PO SCH ×2 (06:23→11:32)
[2019-04-10] MEDS: Budesonide 0.5 MG/2 ML Neb Susp NEB SCH (06:36)
[2019-04-10] MEDS: Meclizine 12.5 MG Tab PO SCH (08:27)
[2019-04-10 16:07] VITALS: BP 148/72; PULSE 89
--- NOTE | 2019-04-11 19:13 | PCM.DCSUM1 ---
Discharge Summary - Hospital Course HPI Initial Comments: This is a 84 year old female with past medical history of hypertension who comes to the ED complaining of progressive weakness, nausea and diarrhea. As per patient on 03/25 she was diagnosed with PNA as an outpatient and started on Azithromycin and Cefdinir, she took the 5 days of azithromycin and discontinued the Cefdinir on 03/31 because she was having worsening diarrhea with bowel movements with every meal. She has continued to have worsening diarrhea after meals, "everything goes right through me" as well as nausea with dry heaving and inability to tolerate PO. She also endorses early satiety, weakness, bloating, decreased urine output Once she noticed symptoms were not improving she decided to come to the ED for further evaluation. Diagnosis: Stroke: No - Discharge Data Discharge Date: 04/10/19 Discharge Disposition: DC/Tfer to [facility] 02 Condition: Stable - Referral to Home Health Primary Care Physician: Juan Irizarry MD - Discharge Diagnosis/Problem(s) (1) Diarrhea SNOMED Code(s): 37090149 ICD Code: R19.7 - DIARRHEA, UNSPECIFIED Status: Acute (2) Malaise and fatigue SNOMED Code(s): 372410538 ICD Code: R53.81 - OTHER MALAISE; R53.83 - OTHER FATIGUE Status: Acute (3) Generalized body aches SNOMED Code(s): 34081634 ICD Code: R52 - PAIN, UNSPECIFIED Status: Acute (4) Hypertension SNOMED Code(s): 87153733 ICD Code: I10 - ESSENTIAL (PRIMARY) HYPERTENSION Status: Acute (5) Meniere's disease SNOMED Code(s): 09004516 ICD Code: H81.09 - MENIERE'S DISEASE, UNSPECIFIED EAR Status: Acute (6) Dyslipidemia SNOMED Code(s): 585516626 ICD Code: E78.5 - HYPERLIPIDEMIA, UNSPECIFIED Status: Acute (7) Deafness in left ear SNOMED Code(s): 972150507 ICD Code: H91.92 - UNSPECIFIED HEARING LOSS, LEFT EAR Status: Acute (8) Nausea SNOMED Code(s): 978030493 ICD Code: R11.0 - NAUSEA Status: Acute (9) Abdominal bloating SNOMED Code(s): 245103704 ICD Code: R14.0 - ABDOMINAL DISTENSION (GASEOUS) Status: Acute (10) Polymyalgia rheumatica SNOMED Code(s): 41856888 ICD Code: M35.3 - POLYMYALGIA RHEUMATICA Status: Acute (11) Leukocytosis SNOMED Code(s): 582507717, 665342862 ICD Code: D72.829 - ELEVATED WHITE BLOOD CELL COUNT, UNSPECIFIED Status: Acute (12) Thrombocytosis SNOMED Code(s): 4828815 ICD Code: D47.3 - ESSENTIAL (HEMORRHAGIC) THROMBOCYTHEMIA Status: Acute (13) Hyponatremia SNOMED Code(s): 46261988 ICD Code: E87.1 - HYPO-OSMOLALITY AND HYPONATREMIA Status: Acute (14) Hypochloremia SNOMED Code(s): 74645539 ICD Code: E87.8 - OTH DISORDERS OF ELECTROLYTE AND FLUID BALANCE, NEC Status: Acute (15) Acute kidney failure SNOMED Code(s): 31337916 ICD Code: N17.9 - ACUTE KIDNEY FAILURE, UNSPECIFIED Status: Acute (16) Hematuria SNOMED Code(s): 39969401 ICD Code: R31.9 - HEMATURIA, UNSPECIFIED Status: Acute (17) Hypoalbuminemia SNOMED Code(s): 363491670 ICD Code: E88.09 - OTH DISORDERS OF PLASMA-PROTEIN METABOLISM, NEC Status: Acute (18) Chronic steroid use SNOMED Code(s): 452951255 ICD Code: IEV5838 - Status: Acute (19) H/O: pneumonia SNOMED Code(s): 695509576 ICD Code: Z87.01 - PERSONAL HISTORY OF PNEUMONIA (RECURRENT) Status: Acute (20) Physical deconditioning SNOMED Code(s): 73192695476886 ICD Code: R53.81 - OTHER MALAISE Status: Acute (21) Hypomagnesemia SNOMED Code(s): 394852856 ICD Code: E83.42 - HYPOMAGNESEMIA Status: Acute (22) Hypokalemia SNOMED Code(s): 32276448 ICD Code: E87.6 - HYPOKALEMIA Status: Acute (23) Volume depletion SNOMED Code(s): 84467229 ICD Code: E86.9 - VOLUME DEPLETION, UNSPECIFIED Status: Acute (24) Hyperphosphatemia SNOMED Code(s): 62016879 ICD Code: E83.39 - OTHER DISORDERS OF PHOSPHORUS METABOLISM Status: Acute (25) Hypocalcemia SNOMED Code(s): 0704053 ICD Code: E83.51 - HYPOCALCEMIA Status: Acute - Patient Summary/Data Consults: Consultations 04/02/19 17:52 Consult to Orthotic And Prosthetic Technician [CONS] Routine 04/04/19 20:28 OT Evaluation and Treatment [CONS] Routine PT Evaluation and Treatment [CONS] Routine Hospital Course: Diarrhea - Diagnosed with PNA 03/25--> treated with Azithromycin and Cefdinir, completed 5 and 6 days - Cefdinir discontinued early due to worsening diarrhea, recent incontinence - Worsening diarrhea with inability to tolerate PO Acute kidney injury Glomerulonephritis - Admission labs with KIP and electrolyte abnormalities as well as hematuria and proteinuria on UA - CT abdomen was performed for hematuria and was reported negative for any neoplastic process - BUN and Cr continued to worsen despite IV fluids but urinary output was preserved - On day 3 a phone consult was performed with nephrology in [place] who agreed with work up for hematuria as well as transfer consideration if criteria was met for emergent dialysis - Despite worsening lab values her urinary output continued to increase from 1- 2 L on admission up to 4L on day prior to discharge - Work up was ordered and while waiting for it patient developed worsening shortness of breath as well as new and worsening infiltrates on chest x ray - Hypoxemia was so significant she required O2 repletion via NC constantly, unable to wean off prior to transfer - Associated with hypoxemia and worsening infiltrates --> elevated lactic acid for which code sepsis was called and she was started on triple ATB coverage for HAP - Steadily declining respiratory status with wheezing promted initiation of Solumedrol IV as well as budesonide nebulizations scheduled - Work up came back positive for MPO and P ANCA, that + hematuria + proteinuria + KIP--> Suggestive of vasculitis, either renal predominant or microscopic polyangitis - Case was discussed with nephrology who agreed with need for kidney biopsy and transfer for which she was transferred to [place] for escalation of care Of note she did have episode of chest pain during admission which was worked up with negative results. Echocardiogram reported with preserved ejection fraction and stage 1 diastolic dysfunction. - Patient Instructions Diet: Usual Diet as Tolerated Activity: As Tolerated - Discharge Plan Home Medications: Home Meds Calcium Carbonate [Calcium] 500 mg PO DAILY 05/18/16 [History] Multivit-Min/Iron/Folic/Lutein [Centrum Silver Women Tablet] 1 tab PO DAILY [History] Simvastatin [Zocor] 40 mg PO BEDTIME 05/18/16 [History] Triamterene/Hydrochlorothiazid [Triamterene-HCTZ 37.5-25 MG] 1 each PO DAILY [History] Cefdinir 300 mg PO BID 04/02/19 [History] Losartan [Cozaar] 25 mg PO DAILY 04/02/19 [History] predniSONE [Prednisone] 20 mg PO DAILY 04/02/19 [History] Ibuprofen 200 mg PO Q6H PRN 04/08/19 [History] Patient Handouts: Acute Kidney Injury, Adult, Weakness, [id number], Home Oxygen Use, Adult Referrals: Juan Irizarry MD [Primary Care Provider] - - Discharge Summary/Plan Comment DC Time >30 min.: Yes - General Info Date of Service: 04/10/19 Subjective Update: Feeling a little better Was able to sleep through the night Shortness of breath is the same Tolerating diet Ambulating with assistance - Patient Data Vitals - Most Recent: Last Vital Signs Temp 98.1 F 04/10/19 15:18 Pulse 89 04/10/19 15:18 Resp 22 H 04/10/19 15:18 BP 148/72 H 04/10/19 15:18 Pulse Ox 99 04/10/19 15:18 Weight - Most Recent: 73.391 kg ED Results - Last 24 hrs: Microbiology 04/05/19 12:30 Aerobic Blood Culture - Preliminary Blood - Venous - Lab Draw NO GROWTH AFTER 6 DAYS Anaerobic Blood Culture - Preliminary NO GROWTH AFTER 6 DAYS 04/05/19 12:06 Aerobic Blood Culture - Preliminary Blood - Venous NO GROWTH AFTER 6 DAYS Anaerobic Blood Culture - Preliminary NO GROWTH AFTER 6 DAYS Med Orders - Current: Current Medications Discontinued Medications Acetaminophen (Tylenol) 650 mg PO Q4H PRN PRN Reason: Pain (Mild 1-3)/fever Last Admin: 04/03/19 21:11 Dose: 650 mg Albuterol/Ipratropium (Duoneb 3.0-0.5 Mg/3 Ml) 3 ml NEB ONETIME ONE Stop: 04/04/19 18:16 Last Admin: 04/04/19 18:29 Dose: 3 ml Albuterol/Ipratropium (Duoneb 3.0-0.5 Mg/3 Ml) Confirm Administered Dose 3 ml .ROUTE .STK-MED ONE Stop: 04/04/19 18:42 Last Admin: 04/04/19 18:44 Dose: 3 ml Albuterol/Ipratropium (Duoneb 3.0-0.5 Mg/3 Ml) 3 ml NEB ONETIME ONE Stop: 04/04/19 18:44 Last Admin: 04/04/19 18:48 Dose: Not Given Albuterol/Ipratropium (Duoneb 3.0-0.5 Mg/3 Ml) 3 ml NEB ONETIME ONE Stop: 04/04/19 18:48 Last Admin: 04/04/19 18:54 Dose: 3 ml Albuterol/Ipratropium (Duoneb 3.0-0.5 Mg/3 Ml) 3 ml NEB Q4HRRT [facility] Last Admin: 04/10/19 13:33 Dose: 3 ml Aspirin (Aspirin) 162 mg PO ONETIME ONE Stop: 04/09/19 11:23 Last Admin: 04/09/19 11:37 Dose: 162 mg Budesonide (Pulmicort) 0.5 mg NEB BIDRT [facility] Last Admin: 04/10/19 06:36 Dose: 0.5 mg Calcium Acetate (Phoslo) 667 mg PO TIDMEALS [facility] Last Admin: 04/10/19 11:32 Dose: 667 mg Cefdinir (Omnicef) 300 mg PO Q24H [facility] Doxycycline Hyclate (Vibramycin) 100 mg PO 0500,1500 [facility] Furosemide (Lasix) 20 mg IVPUSH NOW STA Stop: 04/04/19 08:52 Last Admin: 04/04/19 09:01 Dose: 20 mg Furosemide (Lasix) 60 mg IVPUSH NOW ONE Stop: 04/04/19 18:16 Last Admin: 04/04/19 19:19 Dose: 60 mg Furosemide (Lasix) 60 mg IVPUSH BIDDIURETIC [facility] Last Admin: 04/10/19 06:23 Dose: 60 mg Hydralazine HCl (Apresoline) 10 mg IVPUSH Q2H PRN PRN Reason: Hypertension Lactated Ringer's (Ringers, Lactated) 1,000 mls @ 125 mls/hr IV ASDIRECTED [facility] Last Admin: 04/02/19 14:00 Dose: 125 mls/hr Sodium Chloride (Normal Saline) 1,000 mls @ 125 mls/hr IV ASDIRECTED [facility] Last Infusion: 04/03/19 11:00 Dose: 75 mls/hr Magnesium Sulfate 4 gm/ Premix 100 mls @ 25 mls/hr IV ONETIME ONE Stop: 04/03/19 10:17 Last Admin: 04/03/19 10:51 Dose: 25 mls/hr Potassium Chloride 10 meq/ (Premix) 100 mls @ 100 mls/hr IV Q1H [facility] Stop: 04/03/19 13:29 Last Admin: 04/03/19 13:38 Dose: 100 mls/hr Sodium Chloride (Normal Saline) 1,000 mls @ 75 mls/hr IV ASDIRECTED [facility] Last Admin: 04/04/19 04:45 Dose: 75 mls/hr Piperacillin Sod/Tazobactam (Sod 4.5 gm/ Sodium Chloride) 100 mls @ 200 mls/hr IV ONETIME ONE Stop: 04/05/19 12:27 Last Admin: 04/05/19 13:46 Dose: 200 mls/hr Piperacillin Sod/Tazobactam (Sod 4.5 gm/ Sodium Chloride) 100 mls @ 25 mls/hr IV Q12H [facility] Levofloxacin/Dextrose 250 mg/ (Premix) 50 mls @ 50 mls/hr IV Q24H [facility] Last Admin: 04/05/19 15:50 Dose: Not Given Piperacillin Sod/Tazobactam (Sod 2.25 gm/ Sodium Chloride) 100 mls @ 25 mls/hr IV Q6H [facility] Last Admin: 04/05/19 15:50 Dose: Not Given Vancomycin HCl 1,000 mg/ (Sodium Chloride) 250 mls @ 166.667 mls/hr IV ONETIME ONE Stop: 04/05/19 13:59 Last Admin: 04/05/19 14:38 Dose: 166.667 mls/hr Levofloxacin/Dextrose 750 mg/ (Premix) 150 mls @ 100 mls/hr IV ONETIME ONE Stop: 04/05/19 14:29 Last Admin: 04/05/19 14:38 Dose: 100 mls/hr Levofloxacin/Dextrose 500 mg/ (Premix) 100 mls @ 100 mls/hr IV Q48H [facility] Piperacillin Sod/Tazobactam (Sod 2.25 gm/ Sodium Chloride) 100 mls @ 25 mls/hr IV Q8H [facility] Last Admin: 04/05/19 18:46 Dose: Not Given Piperacillin Sod/Tazobactam (Sod 4.5 gm/ Sodium Chloride) 100 mls @ 25 mls/hr IV Q12H [facility] Last Admin: 04/06/19 14:39 Dose: 25 mls/hr Vancomycin HCl 1 gm/ Sodium (Chloride) 250 mls @ 250 mls/hr IV Q48H [facility] Magnesium Sulfate 2 gm/ Premix 50 mls @ 25 mls/hr IV ONETIME ONE Stop: 04/06/19 12:30 Last Admin: 04/06/19 11:18 Dose: 25 mls/hr Piperacillin Sod/Tazobactam (Sod 4.5 gm/ Sodium Chloride) 100 mls @ 25 mls/hr IV Q12H [facility] Last Admin: 04/07/19 04:54 Dose: 25 mls/hr Methylprednisolone Sodium Succinate 125 mg/ Sodium Chloride 251 mls @ 251 mls/ hr IV DAILY [facility] Levofloxacin/Dextrose 500 mg/ (Premix) 100 mls @ 100 mls/hr IV Q48H [facility] Last Admin: 04/09/19 14:03 Dose: 100 mls/hr Vancomycin HCl 1 gm/ Sodium (Chloride) 250 mls @ 250 mls/hr IV Q48H [facility] Stop: 04/09/19 18:00 Last Admin: 04/09/19 16:28 Dose: 250 mls/hr Piperacillin Sod/Tazobactam (Sod 4.5 gm/ Sodium Chloride) 100 mls @ 25 mls/hr IV Q12H [facility] Last Admin: 04/10/19 04:34 Dose: 25 mls/hr Magnesium Sulfate 2 gm/ Premix 50 mls @ 25 mls/hr IV ONETIME ONE Stop: 04/08/19 12:28 Last Admin: 04/08/19 10:55 Dose: 25 mls/hr Potassium Chloride 10 meq/ (Premix) 100 mls @ 100 mls/hr IV Q1H [facility] Stop: 04/08/19 14:29 Last Admin: 04/08/19 17:15 Dose: 100 mls/hr Potassium Chloride 10 meq/ (Premix) 100 mls @ 100 mls/hr IV Q1H [facility] Stop: 04/09/19 16:14 Last Admin: 04/09/19 12:05 Dose: 100 mls/hr Potassium Chloride 50 meq/ (Sodium Chloride) 525 mls @ 50 mls/hr IV ONETIME ONE Stop: 04/09/19 22:59 Last Admin: 04/09/19 12:48 Dose: 50 mls/hr Vancomycin HCl 1 gm/ Sodium (Chloride) 250 mls @ 250 mls/hr IV Q36H [facility] Lactulose (Cephulac) 20 gm PO Q6H [facility] Last Admin: 04/06/19 05:28 Dose: 20 gm Meclizine HCl (Antivert) 12.5 mg PO DAILY [facility] Last Admin: 04/10/19 08:27 Dose: 12.5 mg Methylprednisolone (Medrol) 24 mg PO ONETIME ONE Stop: 04/10/19 09:01 Last Admin: 04/10/19 08:27 Dose: 24 mg Methylprednisolone (Medrol) 20 mg PO ONETIME ONE Stop: 04/11/19 09:01 Methylprednisolone (Medrol) 16 mg PO ONETIME ONE Stop: 04/12/19 09:01 Methylprednisolone (Medrol) 12 mg PO ONETIME ONE Stop: 04/13/19 09:01 Methylprednisolone (Medrol) 8 mg PO ONETIME ONE Stop: 04/14/19 09:01 Methylprednisolone (Medrol) 4 mg PO ONETIME ONE Stop: 04/15/19 09:01 Methylprednisolone Sodium Succinate (Solu-Medrol) 125 mg IVPUSH DAILY [facility] Last Admin: 04/09/19 08:33 Dose: 125 mg Nitroglycerin (Nitrostat) 0.4 mg SL Q5M PRN PRN Reason: Chest Pain Last Admin: 04/09/19 11:39 Dose: 0.4 mg Ondansetron HCl (Zofran) 4 mg IVPUSH ONETIME ONE Stop: 04/02/19 15:29 Last Admin: 04/02/19 15:31 Dose: 4 mg Ondansetron HCl (Zofran Odt) 4 mg PO Q6H PRN PRN Reason: nausea, able to take PO Last Admin: 04/09/19 11:52 Dose: 4 mg Ondansetron HCl (Zofran) 4 mg IVPUSH Q8H [facility] Last Admin: 04/03/19 06:42 Dose: Not Given Ondansetron HCl (Zofran) 4 mg IVPUSH Q8H PRN PRN Reason: Nausea Last Admin: 04/03/19 20:17 Dose: 4 mg Simethicone (Simethicone) 80 mg PO Q4H [facility] Last Admin: 04/07/19 08:16 Dose: 80 mg Simethicone (Simethicone) 80 mg PO Q4H PRN PRN Reason: Other Sucralfate (Carafate) 1 gm PO ONETIME ONE Stop: 04/02/19 08:53 Last Admin: 04/02/19 09:03 Dose: 1 gm Triamterene/HCTZ (Dyazide 25-37.5 Mg) 1 each PO DAILY [facility] Last Admin: 04/04/19 11:11 Dose: Not Given Vancomycin HCl (Pharmacy To Dose - Vancomycin) 1 dose .XX ASDIRECTED R[facility]ATO Vancomycin HCl (Pharmacy To Dose - Vancomycin) 1 dose .XX ASDIRECTED PRN PRN Reason: RX TO DOSE VANCO - Exam Quality Assessment: Reports: Supplemental Oxygen, Urine Catheter, DVT Prophylaxis Physical Findings Comments:: General: Alert, Oriented, Cooperative, No Acute Distress HEENT: Pupils Equal, Pupils Reactive, EOMI, Mucous Membr. Moist/[place]ury Neck: Supple, Trachea Midline Lungs: Decreased Breath Sounds, Crackles (interval improvement). No: Rales, Rhonchi, Wheezing Cardiovascular: Regular Rate, Regular Rhythm GI/Abdominal Exam: Normal Bowel Sounds, Soft, Non-Tender Extremities: Pedal Edema
== END 2019-04-10 15:56 | DRG 682 ==
LOC: JD.ED 07:45 → JD.MS 15:33 → OBSVTOIN 04-04 10:21 → JD.MS 04-04 12:14
PROVIDERS: ADMIT Internal Medicine; ATTEND Internal Medicine
PROC: 5A09457 Assistance with Respiratory Ventilation, 24-96 Consecutive Hours, Continuous Positive Airway Pressure (ICD-10-PCS; principal; 2019-04-04)
DX: N17.9 Acute kidney failure, unspecified (principal); A41.9 Sepsis, unspecified organism; R19.7 Diarrhea, unspecified; H91.90 Unspecified hearing loss, unspecified ear; J18.9 Pneumonia, unspecified organism; E87.1 Hypo-osmolality and hyponatremia; N05.9 Unspecified nephritic syndrome with unspecified morphologic changes; H81.09 Meniere's disease, unspecified ear; E78.5 Hyperlipidemia, unspecified; H91.92 Unspecified hearing loss, left ear; R14.0 Abdominal distension (gaseous); Z85.038 Personal history of other malignant neoplasm of large intestine; M35.3 Polymyalgia rheumatica; D47.3 Essential (hemorrhagic) thrombocythemia; E87.8 Other disorders of electrolyte and fluid balance, not elsewhere classified; R53.81 Other malaise; E87.70 Fluid overload, unspecified; R31.9 Hematuria, unspecified; E83.42 Hypomagnesemia; E87.6 Hypokalemia; E86.9 Volume depletion, unspecified; E83.39 Other disorders of phosphorus metabolism; I10 Essential (primary) hypertension; E83.51 Hypocalcemia; I77.6 Arteritis, unspecified; R11.0 Nausea; H54.7 Unspecified visual loss; E78.00 Pure hypercholesterolemia, unspecified; K59.09 Other constipation; G89.29 Other chronic pain; M19.90 Unspecified osteoarthritis, unspecified site; M54.9 Dorsalgia, unspecified; D72.829 Elevated white blood cell count, unspecified; Z99.81 Dependence on supplemental oxygen; Z79.52 Long term (current) use of systemic steroids; Z87.01 Personal history of pneumonia (recurrent); Z79.899 Other long term (current) drug therapy; Z98.49 Cataract extraction status, unspecified eye; Z90.710 Acquired absence of both cervix and uterus
CPT/HCPCS: 36415 ×3; 71046 ×2; 74019; 76770; 80048 ×2; 80053; 80061; 80074; 81001 ×2; 82043; 82533; 82570; 82787 ×4; 83036; 83516 ×2; 83520 ×2; 83605; 83735 ×2; 84100 ×2; 84134; 84156; 84300; 85007; 85025 ×2; 85027; 85652; 86160 ×2; 86162; 86225 ×2; 86235 ×9; 86256 ×3; 87536; 96361; 96374; 99284; A9270 ×16; G0475; J2405 ×2; J3475; J3480 ×3; J7030 ×4; J7120; 36600; 71045; 71045-26; 71250; 71250-26; 80202; 82044; 82553; 82803; 83874; 84145; 84484; 85610; 85730; 86140; 87040; 87086; 87493; 93005; 93306; 94640; 94660; 94668; 94760; 94761; 96365; 96366; 96375; 96376; 97110-GP; 97116-GP; 97162-GP; 97165-GO; 97530-GO; 97530-GP; 99285; G0378; J1940; J1956; J2543; J2930; J3370; J7040; J7050; J7620-GY

== ENCOUNTER 2021-02-28 03:58 | Emergency (ER) | payer MEDICARE, OTHER ==
[2021-02-28 04:25] VITALS: BP 116/53
[2021-02-28] MEDS ORDERED: REMDESIVIR 200 MG in Sodium Chloride 0.9% 250 ML IV ONE (04:33)
[2021-02-28 05:19] LABS: CORONAVIRUS COVID-19 NAA NEGATIVE (NEGATIVE)
[2021-02-28] MEDS ORDERED: Levofloxacin/Dextrose 5%-Water 750 MG in Premix Bag 1 BAG IV ONE (05:47)
[2021-02-28] MEDS ORDERED: Azithromycin 500 MG in Sodium Chloride 0.9% 250 ML IV ONE (05:48)
--- NOTE | 2021-02-28 06:56 | CR ---
Chest: Portable view of the chest was obtained. Comparison: Prior chest x-ray of the 04/09/19. Pulmonary markings are diffusely increased within both sides of the chest. Heart is enlarged. Upper mediastinum is stable. Scattered disc space narrowing is seen within the spine with mild scoliosis. Impression: 1. Increased pulmonary markings which most likely represent worsening pulmonary vascular congestion from previous exam. Please correlate if patient has correlating symptoms. Diagnostic code #3
[2021-02-28] MEDS ORDERED: Furosemide 20 MG/2 ML VIAL IVPUSH ONE ×2 (07:11→09:52)
--- NOTE | 2021-02-28 07:36 | EDM.PDOC ---
<Shivani Chowdhury - Last Filed: 02/28/21 07:54> ED HPI GENERAL MEDICAL PROBLEM - General Chief Complaint: Respiratory Problem Stated Complaint: SOB Time Seen by Provider: 02/28/21 04:44 Source of Information: Reports: Patient History Limitations: Reports: Respiratory Distress - History of Present Illness INITIAL COMMENTS - FREE TEXT/NARRATIVE: Patient is an 86-year-old female who comes to the emergency department with her in respiratory distress. Patient has a home pulse oximeter and an oxygen concentrator for the last week secondary to being diagnosed with pneumonia recently and her home O2 sat was in the 60s. Patient does have a nonproductive cough. She denies any fever or shaking chills. She had a negative Covid test approximately 1 week ago. She denies any change to her sense of smell or taste. She has not been nauseous vomiting or having diarrhea. She has had no dysuria or any swelling to her ankles. She denies any other Co vid symptoms. Patient is not having any orthopnea. She does have a history of COPD. She denies any history of CHF. Is here for very cyanotic with an O2 sat of 66 on 2 L nasal cannula. With 5 L nasal cannula she is up to 90% pulse ox. Onset: Gradual Duration: Week(s): (2), Getting Worse Location: Reports: Chest Generalized Pain Score (Numeric/FACES): 5 - Related Data Allergies Allergy/AdvReac Type Severity Reaction Status Date / Time No Known Allergies Allergy Verified 02/28/21 16:41 [employer] Home Meds: Home Meds Calcium Carbonate [Calcium] 500 mg PO DAILY 05/18/16 [History] Multivit-Min/Iron/Folic/Lutein [Centrum Silver Women Tablet] 1 tab PO DAILY 05/18/16 [History] Simvastatin [Zocor] 40 mg PO BEDTIME 05/18/16 [History] Ibuprofen 200 mg PO Q6H PRN 04/08/19 [History] Gabapentin [Neurontin] 100 mg PO DAILY 02/28/21 [History] Promethazine HCl/Codeine [Prometh-Codein 6.25-10 mg/5 ml] 5 ml PO Q6HR PRN 02/28/21 [History] amLODIPine [Norvasc] 5 mg PO DAILY 02/28/21 [History] azaTHIOprine [Imuran] 100 mg PO DAILY 02/28/21 [History] Past Medical History HEENT History: Reports: Cataract, Hard of Hearing, Impaired Vision Other HEENT History: uses hearing aid Cardiovascular History: Reports: High Cholesterol, Hypertension Respiratory History: Reports: COPD, Other (See Below) Other Respiratory History: hypoxia Gastrointestinal History: Reports: Chronic Constipation, Hemorrhoids Musculoskeletal History: Reports: Arthritis, Back Pain, Chronic Endocrine/Metabolic History: Reports: Obesity/BMI 30+ Oncologic (Cancer) History: Reports: Colon - Infectious Disease History Other Infectious Disease History: Got Flu shot in January. - Past Surgical History HEENT Surgical History: Reports: Cataract Surgery GI Surgical History: Reports: Appendectomy, Colonoscopy Female Surgical History: Reports: Hysterectomy Social & Family History - Family History Cardiac: Reports: [place] Other Cardiac Family History: mother, father - Tobacco Use Tobacco Use Status *Q: Never Tobacco User - Caffeine Use Caffeine Use: Reports: Coffee Other Caffeine Use: 3 cups/day - Recreational Drug Use Recreational Drug Use: No ED ROS GENERAL - Review of Systems Review Of Systems: Comprehensive ROS is negative, except as noted in HPI. Constitutional: Reports: No Symptoms Respiratory: Reports: Shortness of Breath, Cough. Denies: Pleuritic Chest Pain, Sputum, Hemoptysis Cardiovascular: Reports: No Symptoms. Denies: Chest Pain GI/Abdominal: Reports: No Symptoms. Denies: Hematemesis, Nausea, Vomiting : Reports: No Symptoms Musculoskeletal: Reports: No Symptoms Skin: Reports: Cyanosis Neurological: Reports: No Symptoms Psychiatric: Reports: No Symptoms ED EXAM, GENERAL - Physical Exam Exam: See Below Exam Limited By: Respiratory Distress General Appearance: Anxious, Mild Distress Head: Atraumatic, Normocephalic Neck: Normal Inspection, Supple Respiratory/Chest: Respiratory Distress, Rhonchi. No: Rales Cardiovascular: Regular Rate, Rhythm, No JVD Back Exam: Normal Inspection Extremities: Normal Inspection, No Pedal Edema Neurological: Alert, Oriented, Normal Cognition Psychiatric: Anxious Skin Exam: Warm, Dry Course - Vital Signs Text/Narrative:: Patient's chest x-ray to me looks like bilateral pneumonia. Radiologist is reading this as consistent with fluid overload. Patient did receive 20 mg Lasix by me. I have also given her some remdesivir thinking clinically she appeared as a Covid pneumonia but her Covid 19 test came back negative. Patient's white blood cell count is normal her lactate is 1.1. D-dimer 0.70 her troponin is negative. BNP is elevated at 2479. Vital signs remained stable except for respiratory rate which is still elevated in the high 20s and low 30s. Her O2 sat has remained greater than 90% on 5 L nasal cannula. Patient will need to be admitted for her hypoxemia. Patient's care is being transferred to Dr. Ken secondary to change in shift. Departure - Departure Disposition: DC/Tfer to [facility] 02 Clinical Impression: CHF (congestive heart failure), Hypoxia - Discharge Information Referrals: Juan Irizarry MD [Primary Care Provider] - Forms: ED Department Discharge Sepsis Event Note (ED) - Evaluation Sepsis Screening Result: No Definite Risk <Evin Ken - Last Filed: 03/02/21 17:29> #1 Interpretation EKG Date: 02/28/21 Time: 10:09 Rhythm: NSR Rate (Beats/Min): 74 [place]: Normal P-Wave: Present QRS: Normal ST-T: Normal QT: Normal Comparison: NA - No Prior EKG EKG Interpretation Comments: Evidence of possible left ventricular hypertrophy by EKG criteria. Abnormal EKG. Course - Vital Signs Last Recorded V/S: Last Vital Signs Temp 36.5 C 02/28/21 08:09 Pulse 70 02/28/21 12:13 Resp 24 H 02/28/21 12:13 BP 116/53 L 02/28/21 04:17 Pulse Ox 96 02/28/21 12:13 - Orders/Labs/Meds Labs: Laboratory Tests 02/28/21 02/28/21 02/28/21 Range/Units 04:25 04:25 04:25 WBC 12.00 H (3.98-10.04) K/mm3 RBC 3.88 L (3.98-5.22) M/mm3 Hgb 11.1 L (11.2-15.7) gm/dl Hct 33.5 L (34.1-44.9) % MCV 86.3 (79.4-94.8) fl MCH 28.6 (25.6-32.2) pg MCHC 33.1 (32.2-35.5) g/dl RDW Std Deviation 48.1 H (36.4-46.3) fL Plt Count 363 (182-369) K/mm3 MPV 9.0 L (9.4-12.3) fl Neutrophils % (Manual) 83 H (40-60) % Band Neutrophils % 1 (0-10) % Lymphocytes % (Manual) 5 L (20-40) % Atypical Lymphs % 0 % Monocytes % (Manual) 11 H (2-10) % Eosinophils % (Manual) 0 L (0.7-5.8) % Basophils % (Manual) 0 L (0.1-1.2) Platelet Estimate Adequate RBC Morph Comment Normal D-Dimer, Quantitative 0.70 H (0.19-0.50) mg/L Sodium 134 L (136-145) mEq/L Potassium 3.7 (3.5-5.1) mEq/L Chloride 96 L (98-107) mEq/L Carbon Dioxide 29 (21-32) mEq/L Anion Gap 12.7 (5-15) BUN 15 D (7-18) mg/dL Creatinine 1.1 H D (0.55-1.02) mg/dL Est Cr Clr Drug Dosing 30.93 mL/min Estimated GFR (MDRD) 47 (>60) mL/min BUN/Creatinine Ratio 13.6 L (14-18) Glucose 134 H (70-99) mg/dL Lactic Acid (0.4-2.0) mmol/L Calcium 8.1 L (8.5-10.1) mg/dL Total Bilirubin 0.4 (0.2-1.0) mg/dL AST 36 (15-37) U/L ALT 27 (14-59) U/L Alkaline Phosphatase 50 (46-116) U/L Troponin I 0.020 (0.00-0.056) ng/mL NT-Pro-B Natriuret Pep (0-450) pg/mL Total Protein 5.1 L (6.4-8.2) g/dl Albumin 2.0 L (3.4-5.0) g/dl Globulin 3.1 gm/dL Albumin/Globulin Ratio 0.7 L (1-2) Influenza Type A RNA (NEGATIVE) Influenza Type B RNA (NEGATIVE) SARS-CoV-2 RNA ([facility]) (NEGATIVE) 02/28/21 02/28/21 02/28/21 Range/Units 04:25 04:45 04:45 WBC (3.98-10.04) K/mm3 RBC (3.98-5.22) M/mm3 Hgb (11.2-15.7) gm/dl Hct (34.1-44.9) % MCV (79.4-94.8) fl MCH (25.6-32.2) pg MCHC (32.2-35.5) g/dl RDW Std Deviation (36.4-46.3) fL Plt Count (182-369) K/mm3 MPV (9.4-12.3) fl Neutrophils % (Manual) (40-60) % Band Neutrophils % (0-10) % Lymphocytes % (Manual) (20-40) % Atypical Lymphs % % Monocytes % (Manual) (2-10) % Eosinophils % (Manual) (0.7-5.8) % Basophils % (Manual) (0.1-1.2) Platelet Estimate RBC Morph Comment D-Dimer, Quantitative (0.19-0.50) mg/L Sodium (136-145) mEq/L Potassium (3.5-5.1) mEq/L Chloride (98-107) mEq/L Carbon Dioxide (21-32) mEq/L Anion Gap (5-15) BUN (7-18) mg/dL Creatinine (0.55-1.02) mg/dL Est Cr Clr Drug Dosing mL/min Estimated GFR (MDRD) (>60) mL/min BUN/Creatinine Ratio (14-18) Glucose (70-99) mg/dL Lactic Acid 1.1 (0.4-2.0) mmol/L Calcium (8.5-10.1) mg/dL Total Bilirubin (0.2-1.0) mg/dL AST (15-37) U/L ALT (14-59) U/L Alkaline Phosphatase (46-116) U/L Troponin I (0.00-0.056) ng/mL NT-Pro-B Natriuret Pep 2479 H (0-450) pg/mL Total Protein (6.4-8.2) g/dl Albumin (3.4-5.0) g/dl Globulin gm/dL Albumin/Globulin Ratio (1-2) Influenza Type A RNA Negative (NEGATIVE) Influenza Type B RNA Negative (NEGATIVE) SARS-CoV-2 RNA ([facility]) Negative (NEGATIVE) 02/28/21 Range/Units 10:15 WBC (3.98-10.04) K/mm3 RBC (3.98-5.22) M/mm3 Hgb (11.2-15.7) gm/dl Hct (34.1-44.9) % MCV (79.4-94.8) fl MCH (25.6-32.2) pg MCHC (32.2-35.5) g/dl RDW Std Deviation (36.4-46.3) fL Plt Count (182-369) K/mm3 MPV (9.4-12.3) fl Neutrophils % (Manual) (40-60) % Band Neutrophils % (0-10) % Lymphocytes % (Manual) (20-40) % Atypical Lymphs % % Monocytes % (Manual) (2-10) % Eosinophils % (Manual) (0.7-5.8) % Basophils % (Manual) (0.1-1.2) Platelet Estimate RBC Morph Comment D-Dimer, Quantitative (0.19-0.50) mg/L Sodium (136-145) mEq/L Potassium (3.5-5.1) mEq/L Chloride (98-107) mEq/L Carbon Dioxide (21-32) mEq/L Anion Gap (5-15) BUN (7-18) mg/dL Creatinine (0.55-1.02) mg/dL Est Cr Clr Drug Dosing mL/min Estimated GFR (MDRD) (>60) mL/min BUN/Creatinine Ratio (14-18) Glucose (70-99) mg/dL Lactic Acid (0.4-2.0) mmol/L Calcium (8.5-10.1) mg/dL Total Bilirubin (0.2-1.0) mg/dL AST (15-37) U/L ALT (14-59) U/L Alkaline Phosphatase (46-116) U/L Troponin I < 0.017 (0.00-0.056) ng/mL NT-Pro-B Natriuret Pep (0-450) pg/mL Total Protein (6.4-8.2) g/dl Albumin (3.4-5.0) g/dl Globulin gm/dL Albumin/Globulin Ratio (1-2) Influenza Type A RNA (NEGATIVE) Influenza Type B RNA (NEGATIVE) SARS-CoV-2 RNA ([facility]) (NEGATIVE) Meds: Medications Discontinued Medications Generic Name Dose Route Start Last Admin Trade Name Sherley PRN Reason Stop Dose Admin Furosemide 20 mg 02/28/21 07:11 02/28/21 07:46 Furosemide 20 Mg/2 Ml Vial IVPUSH 02/28/21 07:12 20 mg ONETIME ONE Administration Furosemide 20 mg 02/28/21 09:52 02/28/21 10:52 Furosemide 20 Mg/2 Ml Vial IVPUSH 02/28/21 09:53 20 mg ONETIME ONE Administration Remdesivir 200 mg/ Sodium 250 mls @ 250 mls/hr 02/28/21 04:33 Chloride IV 02/28/21 04:34 ONETIME ONE Levofloxacin/Dextrose 750 mg/ 150 mls @ 100 mls/hr 02/28/21 05:47 02/28/21 07:50 Premix IV 02/28/21 07:16 100 mls/hr ONETIME ONE Administration Azithromycin 500 mg/ Sodium 250 mls @ 250 mls/hr 02/28/21 05:48 02/28/21 06:09 Chloride IV 02/28/21 06:47 250 mls/hr ONETIME ONE Administration Departure - Departure Time of Disposition: 11:00 - Assessment/Plan Assessment:: Patient is 86-year-old female who I assumed care of after routine shift change. Patient no longer hypoxemic after being initiated on nasal cannula. No further events while in the emergency department with me. Patient did have evidence of CHF with elevated BNP and pulmonary vascular congestion. No evidence pneumonia but patient did already receive IV antibiotics. Patient was COVID-19 negative. Patient will require admission to the hospital for CHF treatment and further work-up/evaluation. She will be transferred via ground ambulance as no beds were available at this hospital.
[2021-02-28 12:14] VITALS: PULSE 70
== END 2021-02-28 12:45 ==
LOC: JD.ED 03:58
DX: R09.02 Hypoxemia (principal); I11.0 Hypertensive heart disease with heart failure; I50.9 Heart failure, unspecified; J44.9 Chronic obstructive pulmonary disease, unspecified; E78.00 Pure hypercholesterolemia, unspecified; E66.9 Obesity, unspecified; Z68.29 Body mass index [BMI] 29.0-29.9, adult; Z20.822 Contact with and (suspected) exposure to COVID-19; Z79.899 Other long term (current) drug therapy
CPT/HCPCS: 0240U; 36415; 71045; 80053; 83605; 83880; 84484; 85007; 85027; 85379; 93005; 96365; 96366; 96367; 96375; 96376; 99285; J0456; J1940; J1956; J7050